=== PATIENT | female | born 1950 | race Caucasian/White ===

== ENCOUNTER 2020-05-19 09:22 | Outpatient (REF) | payer MEDICARE, SELFPAY ==
[2020-05-19 10:33] LABS: Estimated Average Glucose 226 mg/dL; Hemoglobin A1c % 9.5 %
[2020-05-19 10:57] LABS: Alanine Aminotransferase 71 U/L (0-31); Aspartate Amino Transferase 56 U/L (5-31); Glucose Fasting 108 mg/dL (60-99)
== END 2020-05-19 09:23 | disposition home or self-care (01) ==
LOC: HO.10HDL 09:22
PROVIDERS: Visit Provider Family Medicine
DX: R94.5 Abnormal results of liver function studies (principal); E11.9 Type 2 diabetes mellitus without complications
CPT/HCPCS: 82947; 83036; 84450; 84460

== ENCOUNTER 2020-07-14 11:33 | Outpatient (REF) | payer MEDICARE, SELFPAY ==
[2020-07-14 14:14] LABS: Alanine Aminotransferase 96 U/L (0-31); Anion Gap 18 (12-20); Blood Urea Nitrogen 9 mg/dL (9-16); Carbon Dioxide 23 mmol/L (22-29); Chloride 104 mmol/L (96-108); Estimated Glomerular Filt Rate > 60; Potassium 4.7 mmol/l (3.3-5.1); Sodium 140 mmol/L (135-145)
[2020-07-15 09:08] LABS: HBS Num1 0.68 mIU/mL (0-7.99); HBc Num1 0.23 S/CO (0.00-0.79); Hepatitis B Core Antibody Nonreactive (Nonreactive); ~HepC Num1 0.09 S/CO (0.00-0.79); ~Hepatitis B Surface Antibody NONREACTIVE (Nonreactive); ~Hepatitis C Antibody Nonreactive (Nonreactive)
== END 2020-07-14 11:34 | disposition home or self-care (01) ==
LOC: HO.10HDL 11:33
PROVIDERS: Visit Provider Family Medicine
DX: R03.0 Elevated blood-pressure reading, without diagnosis of hypertension (principal); R79.89 Other specified abnormal findings of blood chemistry; E03.9 Hypothyroidism, unspecified
CPT/HCPCS: 36415; 80051; 82565; 84460; 84520; 86704; 86706; 86803

== ENCOUNTER 2020-08-18 09:09 | Outpatient (REF) | payer MEDICARE, SELFPAY ==
--- NOTE | ~2020-08-18 | MM_ITS ---
EXAMINATION: MM DIAGNOSTIC DIGITAL BREAST TOMOSYNTHESIS, LEFT CLINICAL INFORMATION: Short interval six-month follow-up probable benign asymmetric density 3:00 left breast. Personal history contralateral right breast cancer status post lumpectomy and radiation 2002. COMPARISON: Mammography: 02/17/2020, 02/05/2020 (BI-RADS 0), 09/30/2018, 09/28/2017, 09/26/2016, 09/24/2015 TECHNIQUE: Digital breast tomosynthesis is performed in both the craniocaudal and mediolateral oblique views along with computer-aided detection (CAD). Synthesized 2D images are generated from the tomosynthesis. FINDINGS: There are scattered areas of fibroglandular density (ACR BI-RADS breast composition Category b). Fibroglandular density mid 3:00 position is similar to prior studies. There is no developing density. Left breast will be reassessed again at time of annual bilateral mammography, due in 6 months. Results are discussed with the patient at time of visit. MM/MM tomosynthesis diagnostic LT IMPRESSION: No significant changes from prior studies. No developing density in area of interest. ASSESSMENT: BI-RADS 3: Probably Benign RECOMMENDATION: Diagnostic mammography at time of annual bilateral exam, due in 6 months. This patient's information was entered into a reminder system with a target due date for their next mammogram.
== END 2020-08-18 09:10 | disposition home or self-care (01) ==
LOC: HO.MAMMO 09:09
PROVIDERS: PCP Family Medicine; Visit Provider Family Medicine
DX: R92.8 Other abnormal and inconclusive findings on diagnostic imaging of breast (principal)
CPT/HCPCS: 77061; 77065

== ENCOUNTER 2020-12-03 09:45 | Outpatient (REF) | payer MEDICARE, SELFPAY ==
[2020-12-03 10:41] LABS: Alanine Aminotransferase 52 U/L (0-31); Alkaline Phosphatase 104 U/L (39-117); Aspartate Amino Transferase 49 U/L (5-31); Bilirubin Direct 0.2 mg/dL (0.0-0.5); Bilirubin Total 0.4 mg/dL (0.0-1.0); Glucose Fasting 134 mg/dL (60-99); Total Protein 7.3 g/dL (6.5-8.0)
[2020-12-03 10:44] LABS: Estimated Average Glucose 189 mg/dL; Hemoglobin A1c % 8.2 %
[2020-12-03 10:48] LABS: Free T4 (Free Thyroxine) 1.11 ng/dL (0.71-1.85); Thyroid Stimulating Hormone 2.09 uIU/mL (0.32-4.0)
[2020-12-03 12:28] LABS: Creatinine Urine 76.41 mg/dL; Microalbum/Creatinine Ratio Ur 15.7 ug/mg cr
== END 2020-12-03 09:46 | disposition home or self-care (01) ==
LOC: HO.10HDL 09:45
PROVIDERS: Visit Provider Family Medicine
DX: E11.9 Type 2 diabetes mellitus without complications (principal); K76.0 Fatty (change of) liver, not elsewhere classified; E03.9 Hypothyroidism, unspecified
CPT/HCPCS: 36415; 80076; 82043; 82947; 83036; 84439; 84443

== ENCOUNTER 2021-02-21 12:26 | Outpatient (REF) | payer MEDICARE, SELFPAY ==
--- NOTE | ~2021-02-21 | MM_ITS ---
EXAMINATION: MM DIAGNOSTIC DIGITAL BREAST TOMOSYNTHESIS, BILATERAL CLINICAL INFORMATION: Due for yearly. Personal history right breast cancer status post lumpectomy and radiation, 2001. Also follow-up probable benign asymmetric density 3:00 left breast. COMPARISON: Mammography: 08/18/2020, 02/17/2020, 02/05/2020 (BI-RADS 0), 09/30/2018, 09/28/2017 TECHNIQUE: Digital breast tomosynthesis is performed in both the craniocaudal and mediolateral oblique views along with computer-aided detection (CAD). Synthesized 2D images are generated from the tomosynthesis. Additional left MLO and spot right CC views are obtained. FINDINGS: There are scattered areas of fibroglandular density (ACR BI-RADS breast composition Category b). Parenchymal pattern is similar to prior exams. There is no interval mass or developing density. No architectural abnormality. The asymmetric density left breast is less conspicuous when compared with the exam 02/05/2020. Neither breast shows abnormal calcifications. There are no significant changes. Results are discussed with the patient at time of visit. MM/MM tomosynthesis diagnostic BI IMPRESSION: 1. Left: Asymmetric density left conspicuous since 02/05/2020. No developing density. 2. Right: No mammographic evidence of malignancy. ASSESSMENT: BI-RADS 3: Probably Benign RECOMMENDATION: Diagnostic mammography at time of next annual exam, due in 12 months. This patient's information was entered into a reminder system with a target due date for their next mammogram.
== END 2021-02-21 12:27 | disposition home or self-care (01) ==
LOC: HO.MAMMO 12:26
PROVIDERS: PCP Family Medicine; Visit Provider Family Medicine
DX: R92.2 Inconclusive mammogram (principal)
CPT/HCPCS: 77062; 77066

== ENCOUNTER 2021-03-14 10:39 | Outpatient (REF) | payer MEDICARE, SELFPAY ==
[2021-03-14 10:55] VITALS: BP 210/100; PULSE 91; RESP 16; TEMP 37.1; O2SAT 98
[2021-03-14 11:20] VITALS: BMI 28.0
== END 2021-03-14 10:40 | disposition home or self-care (01) ==
LOC: HO.MS 10:39
PROVIDERS: PCP Family Medicine; Visit Provider Ophthalmology
PROC: (CPT 66821; principal; 2021-03-14 15:40)
DX: H26.492 Other secondary cataract, left eye (principal); H43.22 Crystalline deposits in vitreous body, left eye; Z96.1 Presence of intraocular lens; I10 Essential (primary) hypertension; E11.9 Type 2 diabetes mellitus without complications; Z79.4 Long term (current) use of insulin; Z79.899 Other long term (current) drug therapy
CPT/HCPCS: 66821

== ENCOUNTER 2021-03-25 | Outpatient (REF) | payer MEDICARE, SELFPAY ==
[2021-03-26 12:21] LABS: Influenza A PCR NEGATIVE (Negative); Influenza B PCR NEGATIVE (Negative); Resp Syncy Virus RNA Qual PCR NEGATIVE (Negative); SARS COV2 PCR INHOUSE NEGATIVE (Negative)
== END 2021-03-25 00:01 | disposition home or self-care (01) ==
LOC: HO.LNP
PROVIDERS: Visit Provider Internal Medicine
DX: Z20.822 Contact with and (suspected) exposure to COVID-19 (principal)
CPT/HCPCS: 0241U

== ENCOUNTER 2021-03-28 12:04 | Outpatient (REF) | payer MEDICARE, SELFPAY ==
[2021-03-28 12:37] VITALS: BMI 38.0
[2021-03-28 12:38] VITALS: BP 219/91; PULSE 77; RESP 16; TEMP 36.9; O2SAT 98
== END 2021-03-28 12:05 | disposition home or self-care (01) ==
LOC: HO.MS 12:04
PROVIDERS: PCP Family Medicine; Visit Provider Ophthalmology
PROC: (CPT 67840; principal; 2021-03-28 14:10)
DX: D23.121 Other benign neoplasm of skin of left upper eyelid, including canthus (principal); Z96.1 Presence of intraocular lens; I10 Essential (primary) hypertension; E11.9 Type 2 diabetes mellitus without complications; Z79.4 Long term (current) use of insulin; Z79.899 Other long term (current) drug therapy
CPT/HCPCS: 67840 ×3; 88304; 88305

== ENCOUNTER 2021-05-23 10:02 | Outpatient (REF) | payer MEDICARE, SELFPAY ==
[2021-05-23 14:19] LABS: Alanine Aminotransferase 47 U/L (0-31); Anion Gap 16 (12-20); Blood Urea Nitrogen 7 mg/dL (9-16); Carbon Dioxide 23 mmol/L (22-29); Chloride 103 mmol/L (96-108); Estimated Glomerular Filt Rate > 60; Glucose Fasting 139 mg/dL (60-99); Potassium 4.2 mmol/L (3.3-5.1); Sodium 138 mmol/L (135-145)
[2021-05-23 14:31] LABS: Estimated Average Glucose 194 mg/dL; Hemoglobin A1c % 8.4 %
[2021-05-23 14:40] LABS: Free T4 (Free Thyroxine) 1.09 ng/dL (0.71-1.85); Thyroid Stimulating Hormone 2.49 uIU/mL (0.32-4.0)
[2021-05-23 14:50] LABS: Creatinine Urine 213.34 mg/dL; Microalbum/Creatinine Ratio Ur 18.7 ug/mg cr
== END 2021-05-23 10:03 | disposition home or self-care (01) ==
LOC: HO.10HDL 10:02
PROVIDERS: Visit Provider Family Medicine
DX: E03.9 Hypothyroidism, unspecified (principal); E11.9 Type 2 diabetes mellitus without complications; I10 Essential (primary) hypertension
CPT/HCPCS: 36415; 80051; 82043; 82565; 82947; 83036; 84439; 84443; 84460; 84520

== ENCOUNTER 2021-07-15 17:21 | Outpatient (REF) | payer MEDICARE, SELFPAY ==
[2021-07-15 17:43] LABS: COVID-19 Test Negative (Negative)
== END 2021-07-15 17:22 | disposition home or self-care (01) ==
LOC: HO.LNP 17:21
PROVIDERS: Visit Provider Internal Medicine
DX: Z20.822 Contact with and (suspected) exposure to COVID-19 (principal)
CPT/HCPCS: 87635

== ENCOUNTER 2021-08-16 10:22 | Outpatient (REF) | payer MEDICARE, SELFPAY ==
[2021-08-16 14:06] LABS: Estimated Average Glucose 212 mg/dL; Glucose Fasting 131 mg/dL (60-99)
[2021-08-16 14:25] LABS: Creatinine Urine 154.05 mg/dL; Microalbum/Creatinine Ratio Ur 15.5 ug/mg cr
== END 2021-08-16 10:23 | disposition home or self-care (01) ==
LOC: HO.10HDL 10:22
PROVIDERS: Visit Provider Family Medicine
DX: E11.9 Type 2 diabetes mellitus without complications (principal)
CPT/HCPCS: 36415; 82043; 82947; 83036

== ENCOUNTER 2021-12-14 10:49 | Outpatient (REF) | payer MEDICARE, SELFPAY ==
--- NOTE | ~2021-12-14 | US_ITS ---
EXAMINATION: US EXTRACRANIAL CAROTID DUPLEX, BILATERAL CLINICAL INFORMATION: Carotid bruit COMPARISON: None TECHNIQUE: Real-time ultrasound and Doppler techniques (integrating B-mode 2-D vascular images, Doppler spectral analysis and color-flow Doppler imaging) were utilized to interrogate the extracranial carotid arteries, the vertebral arteries and proximal subclavian arteries bilaterally. The degree of stenosis is determined by criteria similar to NASCET. FINDINGS: Right Side: 1. There is mild atherosclerotic plaque seen in the bifurcation/proximal ICA region. 2. The common carotid artery PSV proximally is 142 cm/s and distally 90 cm/s. 3. The proximal internal carotid artery velocities are 73 cm/s systolic and 26 cm/s diastolic. 4. The proximal external carotid artery PSV is 170 cm/s. 5. The vertebral artery shows antegrade flow. 6. The subclavian artery waveforms are normal. Left Side: 1. There is mild atherosclerotic plaque seen in the bifurcation/proximal ICA region. 2. The common carotid artery PSV proximally is 173 cm/s and distally 104 cm/s. 3. The proximal internal carotid artery velocities are 95 cm/s systolic and 29 cm/s diastolic. 4. The proximal external carotid artery PSV is 192 cm/s. 5. The vertebral artery shows antegrade flow. 6. The subclavian artery waveforms are normal. US/US carotid duplex BI IMPRESSION: 1. RIGHT: Minimal, non-hemodynamically significant stenosis of the proximal right internal carotid artery corresponding to a 0-49% stenosis by velocity criteria. 2. LEFT: Minimal, non-hemodynamically significant stenosis of the proximal left internal carotid artery corresponding to a 0-49% stenosis by velocity criteria.
== END 2021-12-14 10:50 | disposition home or self-care (01) ==
LOC: HO.US 10:49
PROVIDERS: Visit Provider Family Medicine
DX: R09.89 Other specified symptoms and signs involving the circulatory and respiratory systems (principal); I10 Essential (primary) hypertension; E11.9 Type 2 diabetes mellitus without complications
CPT/HCPCS: 93880

== ENCOUNTER 2022-01-30 11:05 | Outpatient (REF) | payer MEDICARE, SELFPAY ==
[2022-01-30 13:57] LABS: Estimated Average Glucose 189 mg/dL; Hemoglobin A1c % 8.2 %
[2022-01-30 14:07] LABS: Alanine Aminotransferase 59 U/L (0-31); Anion Gap 15 (12-20); Aspartate Amino Transferase 55 U/L (5-31); Blood Urea Nitrogen 6 mg/dL (9-16); Carbon Dioxide 24 mmol/L (22-29); Chloride 104 mmol/L (96-108); Cholesterol 223 mg/dL; Estimated Glomerular Filt Rate > 60; Glucose Fasting 120 mg/dL (60-99); HDL Cholesterol 56 mg/dL; LDL Cholesterol Calculated 127 mg/dl; Potassium 4.4 mmol/L (3.3-5.1); Sodium 139 mmol/L (135-145); Triglycerides 201 mg/dL
== END 2022-01-30 11:06 | disposition home or self-care (01) ==
LOC: HO.10HDL 11:05
PROVIDERS: Family Medicine; Visit Provider Student in an Organized Health Care Education/Training Program
DX: I10 Essential (primary) hypertension (principal); E03.9 Hypothyroidism, unspecified; E78.00 Pure hypercholesterolemia, unspecified; E11.9 Type 2 diabetes mellitus without complications; Z79.899 Other long term (current) drug therapy
CPT/HCPCS: 36415; 80051; 80061; 82550; 82565; 82947; 83036; 84450; 84460; 84520

== ENCOUNTER 2022-02-23 12:46 | Outpatient (REF) | payer MEDICARE, SELFPAY ==
--- NOTE | ~2022-02-23 | MM_ITS ---
EXAMINATION: MM DIAGNOSTIC DIGITAL BREAST TOMOSYNTHESIS, BILATERAL CLINICAL INFORMATION: Due for yearly. Personal history right breast cancer status post lumpectomy and radiation, 2001. Also follow-up probable benign asymmetric density 3:00 left breast. COMPARISON: Mammography: 02/21/2021, 08/18/2020, 02/17/2020, 02/05/2020 (BI-RADS 0), 09/30/2018, 09/28/2017; left breast ultrasound 02/17/2020 TECHNIQUE: Digital breast tomosynthesis is performed in both the craniocaudal and mediolateral oblique views along with computer-aided detection (CAD). Synthesized 2D images are generated from the tomosynthesis. Additional exaggerated right CC view is provided. FINDINGS: There are scattered areas of fibroglandular density (ACR BI-RADS breast composition Category b). Right breast post therapy changes are stable. Neither breast shows developing density or interval mass or architectural abnormality. Minor left retroareolar duct ectasia is stable. Again, there are scattered benign round and rim and dermal calcifications again seen. The axilla and skin contours are unremarkable. No significant changes from prior studies. Results are discussed with the patient at time of visit. MM/MM tomosynthesis diagnostic BI IMPRESSION: No mammographic evidence of malignancy. ASSESSMENT: BI-RADS 2: Benign RECOMMENDATION: Routine annual mammography screening. This patient's information was entered into a reminder system with a target due date for their next mammogram.
== END 2022-02-23 12:47 | disposition home or self-care (01) ==
LOC: HO.MAMMO 12:46
PROVIDERS: PCP Family Medicine; Visit Provider Family Medicine
DX: R92.2 Inconclusive mammogram (principal); Z85.3 Personal history of malignant neoplasm of breast; Z92.3 Personal history of irradiation
CPT/HCPCS: 77062; 77066

== ENCOUNTER 2022-03-09 08:05 | Outpatient (REF) | payer MEDICARE, SELFPAY ==
--- NOTE | ~2022-03-09 | XR_ITS ---
EXAMINATION: XR knee standing BI, XR knee RT 2V CLINICAL INFORMATION: Reason for Exam M25.569 - Pain in unspecified knee COMPARISON: Knee radiographs 12/19/2018 TECHNIQUE: Two views of the right knee and one views of the bilateral knees standing FINDINGS: * No acute fracture or dislocation. * Moderate to advanced degenerative changes of the right knee worst involving the patellofemoral joint where there is loss of joint space and large osteophytes similar to prior. No right suprapatellar joint effusion. Again seen is a possible 5 mm loose body within the right tibiofemoral joint. Atherosclerotic vascular calcification is noted posterior to the right knee. * Left knee is remarkable for moderate osteoarthritis with mild narrowing of the medial compartment joint space similar to prior. XR/XR knee RT 2V Impression: Moderate to advanced osteoarthritis of the right knee worst involving the patellofemoral compartment similar to prior with a possible 5 mm loose body. Moderate osteoarthritis of the left knee similar to prior.
--- NOTE | ~2022-03-09 | XR_ITS ---
EXAMINATION: XR knee standing BI, XR knee RT 2V CLINICAL INFORMATION: Reason for Exam M25.569 - Pain in unspecified knee COMPARISON: Knee radiographs 12/19/2018 TECHNIQUE: Two views of the right knee and one views of the bilateral knees standing FINDINGS: * No acute fracture or dislocation. * Moderate to advanced degenerative changes of the right knee worst involving the patellofemoral joint where there is loss of joint space and large osteophytes similar to prior. No right suprapatellar joint effusion. Again seen is a possible 5 mm loose body within the right tibiofemoral joint. Atherosclerotic vascular calcification is noted posterior to the right knee. * Left knee is remarkable for moderate osteoarthritis with mild narrowing of the medial compartment joint space similar to prior. XR/XR knee standing BI Impression: Moderate to advanced osteoarthritis of the right knee worst involving the patellofemoral compartment similar to prior with a possible 5 mm loose body. Moderate osteoarthritis of the left knee similar to prior.
== END 2022-03-09 08:06 | disposition home or self-care (01) ==
LOC: HO.HOSX 08:05
PROVIDERS: Visit Provider Orthopaedic Surgery
DX: M17.11 Unilateral primary osteoarthritis, right knee (principal)
CPT/HCPCS: 20610; 73560; 73565; 99212; J1100

== ENCOUNTER 2022-04-21 10:55 | Outpatient (REF) | payer MEDICARE, SELFPAY ==
[2022-04-21 14:58] LABS: Free T4 (Free Thyroxine) 1.12 ng/dL (0.71-1.85)
== END 2022-04-21 10:56 | disposition home or self-care (01) ==
LOC: HO.10HDL 10:55
PROVIDERS: Visit Provider Family Medicine
DX: E03.9 Hypothyroidism, unspecified (principal)
CPT/HCPCS: 36415; 84439

== ENCOUNTER 2022-09-18 08:38 | Outpatient (REF) | payer MEDICARE, SELFPAY ==
[2022-09-18 11:11] LABS: Alanine Aminotransferase 31 U/L (0-31); Anion Gap 13 (12-20); Aspartate Amino Transferase 30 U/L (5-31); Blood Urea Nitrogen 12 mg/dL (9-16); Carbon Dioxide 27 mmol/L (22-29); Chloride 107 mmol/L (96-108); Cholesterol 207 mg/dL; Estimated Glomerular Filt Rate > 60; Glucose Fasting 116 mg/dL (60-99); HDL Cholesterol 59 mg/dL; LDL Cholesterol Calculated 124 mg/dl; Potassium 4.7 mmol/L (3.3-5.1); Sodium 142 mmol/L (135-145); Triglycerides 122 mg/dL
[2022-09-18 11:12] LABS: Estimated Average Glucose 209 mg/dL; Hemoglobin A1c % 8.9 %
[2022-09-18 12:25] LABS: Creatinine Urine 69.65 mg/dL; Microalbum/Creatinine Ratio Ur 21.5 ug/mg cr
== END 2022-09-18 08:39 | disposition home or self-care (01) ==
LOC: HO.10HDL 08:38
PROVIDERS: Visit Provider Family Medicine
DX: I10 Essential (primary) hypertension (principal); E11.9 Type 2 diabetes mellitus without complications; E78.00 Pure hypercholesterolemia, unspecified; Z79.899 Other long term (current) drug therapy
CPT/HCPCS: 36415; 80051; 80061; 82043; 82550; 82565; 82947; 83036; 84450; 84460; 84520

== ENCOUNTER 2022-12-01 05:58 | Inpatient (IN) | payer MEDICARE, SELFPAY ==
[2022-12-01] VITALS (12 sets, daily range): BP systolic 106–179; BP diastolic 39–82; PULSE 63–97; RESP 12–20; TEMP 36.5–37.7; O2SAT 97–100; BMI 37.9; BMI 39.1
--- NOTE | 2022-12-01 | ECG_ITS ---
Test Reason : NAUSEA Blood Pressure : / mmHG Vent. Rate : 097 BPM Atrial Rate : 097 BPM P-R Int : 160 ms QRS Dur : 066 ms QT Int : 372 ms P-R-T Axes : 035 038 053 degrees QTc Int : 472 ms Normal sinus rhythm Normal ECG When compared with ECG of 14-OCT-2012 10:10, Nonspecific T wave abnormality no longer evident in Lateral leads QT has lengthened Referred By: Generic ED Physician Electronically Signed By:Donnell Parada
--- NOTE | ~2022-12-01 | CT_ITS ---
EXAMINATION: CT ABDOMEN AND PELVIS WITH CONTRAST CLINICAL INFORMATION: Right lower quadrant pain COMPARISON: Previous ultrasound, CT and MRI of the abdomen March 2009 TECHNIQUE: Multidetector volumetric images were obtained from the superior aspect of the liver through the pubic symphysis following administration 85 mL of Omnipaque 350 intravenous contrast. Sagittal and coronal reformatted images were obtained on the technologist's workstation. Oral contrast: Yes This CT examination was performed using dose optimization techniques as appropriate, variously including the following: *Automated exposure control *Adjustment of mA and/or kV according to patient size (this includes techniques or standardized protocols for targeted exams where dose is matched to indication/reason for exam; i.e. extremities or head) *Use of iterative reconstruction technique DLP: 842 mGy-cm FINDINGS: LUNG BASES: There is scarring or subsegmental atelectasis at the left lung base. There is a 5 mm left lower lobe nodule axial image 8 series 6. This is not included in the fluid in the [id number] on prior exam and cannot be compared. LIVER, GALLBLADDER, AND BILIARY TREE: Mild cirrhotic changes of the liver. No focal liver lesion. Patent hepatic and portal veins. The gallbladder has been removed. No biliary duct dilatation. PANCREAS: Unremarkable. SPLEEN: Wedge-shaped area of decreased attenuation in the spleen probably representing a splenic infarct. There is a small amount of fluid adjacent to the spleen. Splenic artery and splenic vein are patent. ADRENAL GLANDS: Unremarkable. KIDNEYS AND URETERS: Wedge-shaped areas of decreased attenuation in both kidneys, left greater than right. Differential would include infarcts and infection. Small nonobstructing left renal stone.. Small cyst in the lower pole the left kidney. No imaging follow-up recommended. The renal arteries and renal veins are patent. BLADDER: Unremarkable. GASTROINTESTINAL TRACT: Diverticulosis of the colon. No evidence of diverticulitis. Question areas of mild wall thickening of the small bowel. This is greatest in the left lower quadrant. The small and large bowel are otherwise unremarkable. The appendix is unremarkable. ABDOMINAL WALL: No significant hernia is appreciated. LYMPH NODES: Normal. VASCULAR: There is atherosclerotic disease. No aneurysm. Major vessels are patent. No thrombus seen.. PELVIC VISCERA: There is a small amount of ascites in the pelvis. Uterus and adnexa are unremarkable. OSSEOUS STRUCTURES: Degenerative changes of the spine and hip joints CT/CT abdomen pelvis w IV con IMPRESSION: Wedge-shaped low-attenuation areas in the spleen and bilateral kidneys. Appearance is suggestive of infarcts. Differential would include infection. Clinical correlation recommended. Small left renal stone. Cirrhotic-appearing liver. Small amount of ascites. Question mild wall thickening of the small bowel. Diverticulosis. 5 mm left lower lobe nodule. Chest CT follow-up recommended. Fleischner guidelines were followed.
--- NOTE | ~2022-12-01 | CT_ITS ---
EXAMINATION: Head and cervical spine CT without IV contrast CLINICAL INFORMATION: Syncope. Fall. COMPARISON: Previous head CT most recent June 2009 and cervical spine x-ray June 2009 TECHNIQUE: Axial images through the head and cervical spine without IV contrast. Sagittal and coronal reconstructions on the technologist workstation were performed. This CT examination was performed using dose optimization techniques as appropriate, variously including the following: *Automated exposure control *Adjustment of mA and/or kV according to patient size (this includes techniques or standardized protocols for targeted exams where dose is matched to indication/reason for exam; i.e. extremities or head) *Use of iterative reconstruction technique DLP 150 5 mg/cm FINDINGS: Head CT: There is no evidence for an extra-axial collection. There is no evidence for intra or extra-axial hemorrhage. The ventricles and extra-axial CSF spaces are appropriate. There is low-attenuation seen in the periventricular white matter of the left posterior parietal lobe suggestive of a periventricular and subcortical white matter infarct. This is increased in the interval from 2009 however is probably old. No mass, mass effect or acute infarct is seen. review at bone windows is normal. No skull fracture. Stable partially calcified scalp mass measuring 1 cm at the vertex. Cervical spine CT: Bone alignment is normal. No fracture or dislocation. There is degenerative spondylosis and degenerative disc disease at C3-C5-C6 and C6-C7. There is bilateral multilevel facet arthritis, left greater than right. There are degenerative changes at the C1 dens articulation. Prevertebral soft tissues are normal. Visualized lung apices are clear. The visualized aortic arch may be slightly dilated measuring 3.[address]/CT cervical spine wo IV con IMPRESSION: Head CT: No acute findings. Probable old left posterior parietal periventricular/subcortical white matter infarct. Cervical spine CT: Degenerative changes. No fracture or dislocation.
--- NOTE | ~2022-12-01 | XR_ITS ---
EXAMINATION: XR CHEST CLINICAL INFORMATION: Syncope COMPARISON: Previous chest x-ray from 2012 TECHNIQUE: Frontal view of the chest was obtained. FINDINGS: No significant abnormality is noted involving the heart, lungs, mediastinum, bony thorax or soft tissues. Degenerative changes of the spine. XR/XR chest 1V IMPRESSION: Unremarkable examination.
--- NOTE | 2022-12-01 06:34 | ED_ITS ---
HPI - General Adult General Chief complaint: General Medical Stated complaint: hypoglycemia N/V/D Weakness Time Seen by Provider: 12/01/22 06:34 Source: patient, EMS and RN notes reviewed Mode of arrival: EMS Limitations: no limitations History of Present Illness HPI narrative: Patient is a 72-year-old female with history T2 dm, HTN, hypothyroid, cholecystectomy, CVA at age 37 presenting to the emergency department via EMS after episode of nausea, vomiting, and diarrhea at home. Patient reports she was awake from 2am-4am and around 4:20 felt nauseated. She went to get off the bed to go to the bathroom and felt weak, believes she may have passed out. She then had diaphoresis, vomiting and diarrhea where she was laying on the floor. She remembers her administering OJ and brown sugar. She reports approximately 4 prior similar episodes in the past 5-6 years. She reports 1 other evaluation in an emergency department following 1 of these episodes. She currently denies any abdominal pain, does report ongoing nausea, states she feels better lying on her left side. Reports she felt normal yesterday. Denies recent fevers. Denies chest pain or shortness of breath. Denies dizziness or lightheadedness yesterday. Reports that emesis was food, no blood, no bile. Denies hematochezia or melena. , who is a physician, reports patient slid from their bed onto carpeted floor and had non-focal seizure like movements. He states her BP was low for EMS with SBP around 80. MD complaint: Syncope, N/V/D Onset (ago): hour(s) Location: abdomen Radiation: non-radiation Associated symptoms: diaphoresis and nausea/vomiting Treatments prior to arrival: other (zofran from EMS) Related Data Home Medications Medication Instructions Recorded Confirmed aspirin 81 mg tablet,delayed 81 mg PO DAILY 03/09/22 release (Adult Low Dose Aspirin) insulin syringe-needle U-100 1 mL #10 ea 03/09/22 31 gauge x 5/16 (BD Insulin Syringe Ultra-Fine) levothyroxine 75 mcg tablet 75 mcg PO DAILY 03/09/22 (Synthroid) lisinopril 20 mg tablet 20 mg PO DAILY 03/09/22 metformin 1,000 mg tablet 1,000 mg PO BID 03/09/22 pravastatin 10 mg tablet 10 mg PO BEDTIME 03/09/22 Allergies Allergy/AdvReac Type Severity Reaction Status Date / Time shellfish derived Allergy Severe Anaphylaxis, Verified 12/01/22 07:05 Hives, Shortness of Breath SILK TAPE Allergy Mild RASH Uncoded 03/11/20 15:16 Review of Systems Review of Systems: As per HPI. Yes all other systems are reviewed and are negative Constitutional: Constitutional: Reports as per HPI [facility] Past Medical History Medical History (Updated 12/01/22 @ 15:40 by Alma Andrea NP) Diabetes Hypertension Hypothyroidism Surgical History (Updated 03/09/22 @ 08:17 by Ashley Cain CMA) H/O right knee surgery Social History Social History Advance Directives: Yes Advance Directives Information Provided: Yes Advance Directives on File: No Physical Exam ED Vital Signs: Vital Signs - 24 hr 12/01/22 06:05 12/01/22 06:27 12/01/22 07:50 Temperature Pulse Rate 97 92 76 Respiratory Rate 19 19 Blood Pressure 108/65 106/73 129/43 L Pulse Oximetry 100 99 Oxygen Delivery Method Room Air Room Air Room Air 12/01/22 08:06 12/01/22 08:20 12/01/22 11:54 Temperature 98.8 F Pulse Rate 75 74 78 Respiratory Rate 16 Blood Pressure 112/53 L 134/55 L 145/53 H Pulse Oximetry 98 Oxygen Delivery Method Room Air Room Air Room Air 12/01/22 13:34 12/01/22 14:04 12/01/22 14:19 Temperature 97.7 F Pulse Rate 80 65 Respiratory Rate 16 16 18 Blood Pressure 135/47 L 149/53 H 158/60 H Pulse Oximetry 97 98 100 Oxygen Delivery Method Room Air Room Air Room Air BMI result Body Mass Index 37.9 Vital signs have been reviewed and appear to be correct. Blood pressure normal. Heart rate normal. Respiratory rate normal. Temperature normal. Oxygen saturation normal. Const General: cooperative and no acute distress Orientation/consciousness: oriented to person, oriented to place, oriented to time and patient oriented x3 Limitations: no limitations HENMT Head: Yes normocephalic and Yes atraumatic Ears: external ears normal General nose exam: Normal external nose present Face and sinus: Yes face symmetric Mouth: oropharynx normal and moist mucous membranes Throat: Yes uvula midline Eyes Pupils: Equal, round and reactive pupils present Neck Neck: Yes normal visual inspection and Yes supple Resp Effort & Inspection: normal respiratory effort and able to speak in complete sentences Auscultation: clear to auscultation bilaterally Cardio Rate: regular rate Rhythm: regular rhythm Heart sounds: S1 normal heart sound present and S2 normal heart sound present GI Palpation (GI): Soft to palpation and nontender Auscultation: normoactive bowel sounds General: Yes no CVA tenderness Back/Spine/Pelvis Back: no CVA tenderness Skin General skin exam: elasticity normal and turgor normal Neuro General: oriented to person, oriented to place, oriented to time, patient oriented x3, moves all extremities, no focal motor deficits and CN's II-XI intact bilaterally Cranial nerves: Yes Equal, round and reactive pupils present Cognition (Neuro): normal cognition Motor exam (neuro): Normal motor muscle tone present throughout Sensory Exam: Normal double simultaneous stimulation for sensation Extrem General: Yes full ROM, Yes no pedal edema and Yes no calf tenderness Psych Mental Status: mental status grossly normal Affect: normal affect Thought process: Normal thought process present Course Course Course Narrative: 07:45 Critical lactic of 4.4 received from lab, increases suspicion for seizure as cause of symptoms, or possibly from metformin. 09:51 FINDINGS: Head CT: There is no evidence for an extra-axial collection. There is no evidence for intra or extra-axial hemorrhage. The ventricles and extra-axial CSF spaces are appropriate. There is low-attenuation seen in the periventricular white matter of the left posterior parietal lobe suggestive of a periventricular and subcortical white matter infarct. This is increased in the interval from 2009 however is probably old. No mass, mass effect or acute infarct is seen. review at bone windows is normal. No skull fracture. Stable partially calcified scalp mass measuring 1 cm at the vertex. Cervical spine CT: Bone alignment is normal. No fracture or dislocation. There is degenerative spondylosis and degenerative disc disease at C3-C5-C6 and C6-C7. There is bilateral multilevel facet arthritis, left greater than right. There are degenerative changes at the C1 dens articulation. Prevertebral soft tissues are normal. Visualized lung apices are clear. The visualized aortic arch may be slightly dilated measuring 3.[address]/CT head/brain wo IV con IMPRESSION: Head CT: No acute findings. Probable old left posterior parietal periventricular/subcortical white matter infarct. ?Cervical spine CT: Degenerative changes. No fracture or dislocation. 10:17 Repeat lactic 4.2, sepsis now suspected, blood cultures, additional IV fluids, CXR, and abx ordered. 11:42 FINDINGS: No significant abnormality is noted involving the heart, lungs, mediastinum, bony thorax or soft tissues. Degenerative changes of the spine. XR/XR chest 1V IMPRESSION: Unremarkable examination. Patient now complaining of right lower quadrant abdominal pain. Ordered CT abdomen/pelvis. 12:37 Third lactic 4.7, IV fluids ordered, awaiting results of CT abdomen 14:35 Sepsis focused exam performed. FINDINGS: LUNG BASES: There is scarring or subsegmental atelectasis at the left lung base. There is a 5 mm left lower lobe nodule axial image 8 series 6. This is not included in the fluid in the [id number] on prior exam and cannot be compared. LIVER, GALLBLADDER, AND BILIARY TREE: Mild cirrhotic changes of the liver. No focal liver lesion. Patent hepatic and portal veins. The gallbladder has been removed. No biliary duct dilatation. PANCREAS: Unremarkable.? SPLEEN: Wedge-shaped area of decreased attenuation in the spleen probably representing a splenic infarct. There is a small amount of fluid adjacent to the spleen. Splenic artery and splenic vein are patent. ADRENAL GLANDS: Unremarkable.? KIDNEYS AND URETERS: Wedge-shaped areas of decreased attenuation in both kidneys, left greater than right. Differential would include infarcts and infection. Small nonobstructing left renal stone.. Small cyst in the lower pole the left kidney. No imaging follow-up recommended. The renal arteries and renal veins are patent. BLADDER: Unremarkable.? GASTROINTESTINAL TRACT: Diverticulosis of the colon. No evidence of diverticulitis. Question areas of mild wall thickening of the small bowel. This is greatest in the left lower quadrant. The small and large bowel are otherwise unremarkable. The appendix is unremarkable.? ABDOMINAL WALL: No significant hernia is appreciated.? LYMPH NODES: Normal. VASCULAR: There is atherosclerotic disease. No aneurysm. Major vessels are patent. No thrombus seen.. PELVIC VISCERA: There is a small amount of ascites in the pelvis. Uterus and adnexa are unremarkable.? OSSEOUS STRUCTURES: Degenerative changes of the spine and hip joints CT/CT abdomen pelvis w IV con IMPRESSION: Wedge-shaped low-attenuation areas in the spleen and bilateral kidneys. Appearance is suggestive of infarcts. Differential would include infection. Clinical correlation recommended. Small left renal stone. Cirrhotic-appearing liver. Small amount of ascites. Question mild wall thickening of the small bowel. Diverticulosis. 5 mm left lower lobe nodule. Chest CT follow-up recommended. ? Fleischner guidelines were followed. Medications Administered Discontinued Medications Generic Name Dose Route Start Last Admin Trade Name Freq PRN Reason Stop Dose Admin Diphenhydramine HCl 25 mg 12/01/22 11:51 12/01/22 12:52 Diphenhydramine Hcl 50 Mg/Ml Vial IVPUSH 12/01/22 11:52 25 mg ONCE ONE Administration Sodium Chloride 1,000 mls @ 999 mls/hr 12/01/22 06:45 12/01/22 09:39 Ns IV 12/01/22 07:45 Infused .Q1H1M [place] Infusion Sodium Chloride 1,000 mls @ 999 mls/hr 12/01/22 10:15 12/01/22 11:20 Ns IV 12/01/22 11:15 Infused .Q1H1M [place] Infusion Piperacillin Sod/Tazobactam 50 mls @ 100 mls/hr 12/01/22 10:17 12/01/22 11:20 Sod 3.375 gm/ Sodium Chloride IV 12/01/22 10:46 Infused ONCE ONE Infusion Sodium Chloride 1,000 mls @ 999 mls/hr 12/01/22 12:00 12/01/22 13:40 Ns IV 12/01/22 13:00 Infused .Q1H1M [place] Infusion Iohexol 85 ml 12/01/22 13:28 12/01/22 13:28 Iohexol 350 Mg/Ml 100 Ml Infus..Btl IV 12/01/22 13:29 85 ml ONCE ONE Administration Ondansetron HCl 4 mg 12/01/22 06:44 12/01/22 07:08 Ondansetron Hcl 4 Mg/2 Ml Vial IVPUSH 12/01/22 06:45 4 mg ONCE ONE Administration Medical Decision Making Medical Decision Making [facility] Narrative: Patient is a 72-year-old female with history T2 dm, HTN, hypothyroid, chol ecystectomy, CVA at age 37 presenting to the emergency department via EMS after episode of nausea, vomiting, and diarrhea at home. On exam patient is awake, A+Ox3, VS WNL, normal neurological exam without focal deficits, abdomen soft and nontender, no CVA tenderness. Concern for causes of syncope versus seizure including ACS, ICH, hypoglycemia, anemia, cardiac arrhythmia, electrolyte abnormalities, dehydration, vasovagal, malignancy/mass, viral gastroenteritis. Low suspicion for sepsis. Unlikely AAA rupture, aortic dissection, PE. Plan: EKG, labs including troponin, TSH, lactic, UA, CT head and neck, orthostatic VS, IV fluids, antiemetic Differential Diagnosis Differential Diagnoses: The differential diagnosis associated with the presentation includes As above. Admission/Observation Consideration of admission/observation: Escalation of care including admission/observation considered Lab Data 12/01/22 06:38 12/01/22 06:38 Labs: Lab Results 12/01/22 12/01/22 12/01/22 Range/Units 06:08 06:38 06:38 WBC 18.2 H (4.8-10.8) X10*3/uL RBC 5.73 H (4.20-5.50) X10*6/uL Hgb 16.1 H (12.0-16.0) g/dl Hct 49.7 H (37.0-47.0) % MCV 86.7 (80.0-98.0) fL MCH 28.1 (27.0-33.0) pg MCHC 32.4 (31.0-35.0) g/dl RDW 13.5 (11.0-16.0) % Plt Count TNP MPV Not Reportable Immature Gran % (Auto) 0.4 (0.0-0.4) % Neut % (Auto) 77.1 H (45-73) % Lymph % (Auto) 15.5 L (20-40) % [place] % (Auto) 6.0 (2-11) % Eos % (Auto) 0.4 (0-4) % Baso % (Auto) 0.6 (0-2) % Lymph # (Auto) 2.8 (1.2-4.9) X10*3/uL [place] # (Auto) 1.1 (0.1-1.2) X10*3/uL Eos # (Auto) 0.1 (0.0-0.4) X10*3/uL Baso # (Auto) 0.1 (0.0-0.2) X10*3/uL Abs Immat Gran (auto) 0.07 H (0.00-0.03) X10*3/uL Absolute Neuts (auto) 14.0 H (2.0-8.3) x10*3/uL Absolute Nucleated RBC 0.000 (0.0-0.012) X10*3/uL Nucleated RBC % (auto) 0.0 (0.0-0.2) /100WBC Smear Tech's Comments VERIFIED VBG pH (7.32-7.43) VBG pCO2 mmHg VBG pO2 mmHg VBG HCO3 (22-26) mmol/L VBG O2 Saturation % VBG Base Excess mmol/L Sodium 138 (135-145) mmol/L Potassium 4.0 (3.3-5.1) mmol/L Chloride 107 (96-108) mmol/L Carbon Dioxide 17 L (22-29) mmol/L Anion Gap 18 (12-20) BUN 13 (9-16) mg/dL Creatinine 0.88 (0.5-1.4) mg/dL Estim Creat Clear Calc 73.4 Estimated GFR > 60 POC Glucose 276 H (60-115) mg/dL Random Glucose 285 H (60-115) mg/dL Lactic Acid (0.5-2.0) mmol/L Lactic Acid F/U @ 2Hr (0.5-2.0) mmol/L Calcium 9.1 (8.4-10.2) mg/dL Magnesium (1.6-2.6) mg/dL Total Bilirubin (0.0-1.0) mg/dL Direct Bilirubin (0.0-0.5) mg/dL AST (5-31) U/L ALT (0-31) U/L Alkaline Phosphatase (39-117) U/L Troponin I High Sens (<3.5-17.0) ng/L Total Protein (6.5-8.0) g/dL Albumin (3.5-5.0) g/dL Lipase (8-78) U/L TSH (0.32-4.0) uIU/mL Free T4 (0.71-1.85) ng/dL Urine Color Urine Appearance Urine pH (5.0-9.0) Ur Specific [place] (1.005-1.025) Urine Protein (Neg-Trace) mg/dL Urine Glucose (UA) (Negative) mg/dL Urine Ketones (Negative) mg/dL Urine Blood (Negative) Urine Nitrite (Negative) Ur Leukocyte Esterase (Negative) Urine RBC (0-2) /HPF Urine WBC (0-5) /HPF Ur Squamous Epith Cells (0-2) /HPF Urine Bacteria (None Seen) Hyaline Casts (0-2) /LPF Urine Yeast 12/01/22 12/01/22 12/01/22 Range/Units 07:04 07:04 07:28 WBC (4.8-10.8) X10*3/uL RBC (4.20-5.50) X10*6/uL Hgb (12.0-16.0) g/dl Hct (37.0-47.0) % MCV (80.0-98.0) fL MCH (27.0-33.0) pg MCHC (31.0-35.0) g/dl RDW (11.0-16.0) % Plt Count MPV Immature Gran % (Auto) (0.0-0.4) % Neut % (Auto) (45-73) % Lymph % (Auto) (20-40) % [place] % (Auto) (2-11) % Eos % (Auto) (0-4) % Baso % (Auto) (0-2) % Lymph # (Auto) (1.2-4.9) X10*3/uL [place] # (Auto) (0.1-1.2) X10*3/uL Eos # (Auto) (0.0-0.4) X10*3/uL Baso # (Auto) (0.0-0.2) X10*3/uL Abs Immat Gran (auto) (0.00-0.03) X10*3/uL Absolute Neuts (auto) (2.0-8.3) x10*3/uL Absolute Nucleated RBC (0.0-0.012) X10*3/uL Nucleated RBC % (auto) (0.0-0.2) /100WBC Smear Tech's Comments VBG pH (7.32-7.43) VBG pCO2 mmHg VBG pO2 mmHg VBG HCO3 (22-26) mmol/L VBG O2 Saturation % VBG Base Excess mmol/L Sodium (135-145) mmol/L Potassium (3.3-5.1) mmol/L Chloride (96-108) mmol/L Carbon Dioxide (22-29) mmol/L Anion Gap (12-20) BUN (9-16) mg/dL Creatinine (0.5-1.4) mg/dL Estim Creat Clear Calc Estimated GFR POC Glucose (60-115) mg/dL Random Glucose (60-115) mg/dL Lactic Acid 4.4 H* (0.5-2.0) mmol/L Lactic Acid F/U @ 2Hr (0.5-2.0) mmol/L Calcium (8.4-10.2) mg/dL Magnesium 2.0 (1.6-2.6) mg/dL Total Bilirubin 0.3 (0.0-1.0) mg/dL Direct Bilirubin 0.1 (0.0-0.5) mg/dL AST 47 H (5-31) U/L ALT 52 H (0-31) U/L Alkaline Phosphatase 110 (39-117) U/L Troponin I High Sens 19.8 H (<3.5-17.0) ng/L Total Protein 6.8 (6.5-8.0) g/dL Albumin 3.7 (3.5-5.0) g/dL Lipase 36 (8-78) U/L TSH 4.96 H (0.32-4.0) uIU/mL Free T4 1.11 (0.71-1.85) ng/dL Urine Color Urine Appearance Urine pH (5.0-9.0) Ur Specific [place] (1.005-1.025) Urine Protein (Neg-Trace) mg/dL Urine Glucose (UA) (Negative) mg/dL Urine Ketones (Negative) mg/dL Urine Blood (Negative) Urine Nitrite (Negative) Ur Leukocyte Esterase (Negative) Urine RBC (0-2) /HPF Urine WBC (0-5) /HPF Ur Squamous Epith Cells (0-2) /HPF Urine Bacteria (None Seen) Hyaline Casts (0-2) /LPF Urine Yeast 12/01/22 12/01/22 12/01/22 Range/Units 08:36 09:30 09:30 WBC (4.8-10.8) X10*3/uL RBC (4.20-5.50) X10*6/uL Hgb (12.0-16.0) g/dl Hct (37.0-47.0) % MCV (80.0-98.0) fL MCH (27.0-33.0) pg MCHC (31.0-35.0) g/dl RDW (11.0-16.0) % Plt Count MPV Immature Gran % (Auto) (0.0-0.4) % Neut % (Auto) (45-73) % Lymph % (Auto) (20-40) % [place] % (Auto) (2-11) % Eos % (Auto) (0-4) % Baso % (Auto) (0-2) % Lymph # (Auto) (1.2-4.9) X10*3/uL [place] # (Auto) (0.1-1.2) X10*3/uL Eos # (Auto) (0.0-0.4) X10*3/uL Baso # (Auto) (0.0-0.2) X10*3/uL Abs Immat Gran (auto) (0.00-0.03) X10*3/uL Absolute Neuts (auto) (2.0-8.3) x10*3/uL Absolute Nucleated RBC (0.0-0.012) X10*3/uL Nucleated RBC % (auto) (0.0-0.2) /100WBC Smear Tech's Comments VBG pH 7.31 L (7.32-7.43) VBG pCO2 42 mmHg VBG pO2 32 mmHg VBG HCO3 21 L (22-26) mmol/L VBG O2 Saturation 38.0 % VBG Base Excess -4.1 mmol/L Sodium (135-145) mmol/L Potassium (3.3-5.1) mmol/L Chloride (96-108) mmol/L Carbon Dioxide (22-29) mmol/L Anion Gap (12-20) BUN (9-16) mg/dL Creatinine (0.5-1.4) mg/dL Estim Creat Clear Calc Estimated GFR POC Glucose (60-115) mg/dL Random Glucose (60-115) mg/dL Lactic Acid 4.2 H* (0.5-2.0) mmol/L Lactic Acid F/U @ 2Hr (0.5-2.0) mmol/L Calcium (8.4-10.2) mg/dL Magnesium (1.6-2.6) mg/dL Total Bilirubin (0.0-1.0) mg/dL Direct Bilirubin (0.0-0.5) mg/dL AST (5-31) U/L ALT (0-31) U/L Alkaline Phosphatase (39-117) U/L Troponin I High Sens 17.8 H (<3.5-17.0) ng/L Total Protein (6.5-8.0) g/dL Albumin (3.5-5.0) g/dL Lipase (8-78) U/L TSH (0.32-4.0) uIU/mL Free T4 (0.71-1.85) ng/dL Urine Color Urine Appearance Urine pH (5.0-9.0) Ur Specific [place] (1.005-1.025) Urine Protein (Neg-Trace) mg/dL Urine Glucose (UA) (Negative) mg/dL Urine Ketones (Negative) mg/dL Urine Blood (Negative) Urine Nitrite (Negative) Ur Leukocyte Esterase (Negative) Urine RBC (0-2) /HPF Urine WBC (0-5) /HPF Ur Squamous Epith Cells (0-2) /HPF Urine Bacteria (None Seen) Hyaline Casts (0-2) /LPF Urine Yeast 12/01/22 12/01/22 Range/Units 11:56 13:13 WBC (4.8-10.8) X10*3/uL RBC (4.20-5.50) X10*6/uL Hgb (12.0-16.0) g/dl Hct (37.0-47.0) % MCV (80.0-98.0) fL MCH (27.0-33.0) pg MCHC (31.0-35.0) g/dl RDW (11.0-16.0) % Plt Count MPV Immature Gran % (Auto) (0.0-0.4) % Neut % (Auto) (45-73) % Lymph % (Auto) (20-40) % [place] % (Auto) (2-11) % Eos % (Auto) (0-4) % Baso % (Auto) (0-2) % Lymph # (Auto) (1.2-4.9) X10*3/uL [place] # (Auto) (0.1-1.2) X10*3/uL Eos # (Auto) (0.0-0.4) X10*3/uL Baso # (Auto) (0.0-0.2) X10*3/uL Abs Immat Gran (auto) (0.00-0.03) X10*3/uL Absolute Neuts (auto) (2.0-8.3) x10*3/uL Absolute Nucleated RBC (0.0-0.012) X10*3/uL Nucleated RBC % (auto) (0.0-0.2) /100WBC Smear Tech's Comments VBG pH (7.32-7.43) VBG pCO2 mmHg VBG pO2 mmHg VBG HCO3 (22-26) mmol/L VBG O2 Saturation % VBG Base Excess mmol/L Sodium (135-145) mmol/L Potassium (3.3-5.1) mmol/L Chloride (96-108) mmol/L Carbon Dioxide (22-29) mmol/L Anion Gap (12-20) BUN (9-16) mg/dL Creatinine (0.5-1.4) mg/dL Estim Creat Clear Calc Estimated GFR POC Glucose (60-115) mg/dL Random Glucose (60-115) mg/dL Lactic Acid (0.5-2.0) mmol/L Lactic Acid F/U @ 2Hr 4.7 H* (0.5-2.0) mmol/L Calcium (8.4-10.2) mg/dL Magnesium (1.6-2.6) mg/dL Total Bilirubin (0.0-1.0) mg/dL Direct Bilirubin (0.0-0.5) mg/dL AST (5-31) U/L ALT (0-31) U/L Alkaline Phosphatase (39-117) U/L Troponin I High Sens (<3.5-17.0) ng/L Total Protein (6.5-8.0) g/dL Albumin (3.5-5.0) g/dL Lipase (8-78) U/L TSH (0.32-4.0) uIU/mL Free T4 (0.71-1.85) ng/dL Urine Color Yellow Urine Appearance Clear Urine pH 5.5 (5.0-9.0) Ur Specific [place] >= 1.030 H (1.005-1.025) Urine Protein Trace (Neg-Trace) mg/dL Urine Glucose (UA) >=1000 H (Negative) mg/dL Urine Ketones Negative (Negative) mg/dL Urine Blood Negative (Negative) Urine Nitrite Negative (Negative) Ur Leukocyte Esterase Negative (Negative) Urine RBC 3-5 H (0-2) /HPF Urine WBC 11-20 H (0-5) /HPF Ur Squamous Epith Cells 3-5 (0-2) /HPF Urine Bacteria Trace (None Seen) Hyaline Casts 3-5 (0-2) /LPF Urine Yeast Present Discharge Plan Discharge Clinical Impression: Metabolic acidosis Patient Disposition: Admitted As Inpatient Prescriptions: No Action metformin 1,000 mg tablet 1,000 mg PO BID (DME) insulin syringe-needle U-100 [BD Insulin Syringe Ultra-Fine] 1 mL 31 gauge x 5/16 syringe See Rx Instructions .ROUTE .MEDSUPPLY Qty: 10 Rx Instructions: As directed lisinopril 20 mg tablet 20 mg PO DAILY levothyroxine [Synthroid] 75 mcg tablet 75 mcg PO DAILY pravastatin 10 mg tablet 10 mg PO BEDTIME aspirin [Adult Low Dose Aspirin] 81 mg tablet,delayed release (DR/EC) 81 mg PO DAILY
[2022-12-01 06:42] LABS: Hemoglobin 16.1 g/dl (12.0-16.0); Imm Gran Pct Auto 0.4 % (0.0-0.4); MANUAL DIFF FLAG SCAN; Mean Corpuscular Volume 86.7 fL (80.0-98.0); SCAN SMEAR FLAG 1
[2022-12-01 06:44] LABS: Basophils Absolute Auto 0.1 X10*3/uL (0.0-0.2); Basophils Percent Auto 0.6 % (0-2); Eosinophils Absolute Auto 0.1 X10*3/uL (0.0-0.4); Eosinophils Percent Auto 0.4 % (0-4); Hematocrit 49.7 % (37.0-47.0); Imm Gran Abs Auto 0.07 X10*3/uL (0.00-0.03); Lymphocytes Absolute Auto 2.8 X10*3/uL (1.2-4.9); Lymphocytes Percent Auto 15.5 % (20-40); Mean Corpuscular HGB Conc 32.4 g/dl (31.0-35.0); Mean Corpuscular Hemoglobin 28.1 pg (27.0-33.0); Monocytes Absolute Auto 1.1 X10*3/uL (0.1-1.2); Neutrophils Percent Auto 77.1 % (45-73); PLT CLUMP 1; Red Blood Count 5.73 X10*6/uL (4.20-5.50); Red Cell Distribution Width 13.5 % (11.0-16.0)
[2022-12-01 06:56] LABS: PLT ABN DIST 1
[2022-12-01] MEDS: 0.9 % Sodium Chloride 1,000 ML 999 ML IV ×3 (06:57→12:38)
--- NOTE | 2022-12-01 07:02 | PC.NURSE ---
resumed care of patient this AM she is resting in bed with at bedside, pt has complaints of nausea at this time, IV fluids/med ordered and given
[2022-12-01 07:03] LABS: Anion Gap 18 (12-20); Blood Urea Nitrogen 13 mg/dL (9-16); Calcium 9.1 mg/dL (8.4-10.2); Carbon Dioxide 17 mmol/L (22-29); Chloride 107 mmol/L (96-108); Creatinine Clr Calc Pharmacy 73.4; Estimated Glomerular Filt Rate > 60; Glucose Random 285 mg/dL (60-115); Sodium 138 mmol/L (135-145)
[2022-12-01] MEDS: ondansetron HCL 4 MG/2 ML VIAL IVPUSH ×3 (07:08→22:29)
[2022-12-01 07:12] LABS: White Blood Count 18.2 X10*3/uL (4.8-10.8)
[2022-12-01 07:15] LABS: SLIDE REVIEW VERIFIED
[2022-12-01 07:31] LABS: Alanine Aminotransferase 52 U/L (0-31); Albumin Level 3.7 g/dL (3.5-5.0); Alkaline Phosphatase 110 U/L (39-117); Aspartate Amino Transferase 47 U/L (5-31); Bilirubin Direct 0.1 mg/dL (0.0-0.5); Bilirubin Total 0.3 mg/dL (0.0-1.0); Lipase 36 U/L (8-78); Total Protein 6.8 g/dL (6.5-8.0); Troponin-I High Sensitivity 19.8 ng/L (<3.5-17.0)
[2022-12-01 07:45] LABS: TSH reflex Free T4 4.96 uIU/mL (0.32-4.0)
[2022-12-01 07:45] LABS: Lactic Acid 4.4 mmol/L (0.5-2.0)
[2022-12-01 07:54] LABS: Glucose, Whole Blood 276 mg/dL (60-115)
[2022-12-01 08:20] LABS: Free T4 (Free Thyroxine) 1.11 ng/dL (0.71-1.85)
[2022-12-01 08:40] LABS: Venous Blood Gas Refer to POC result
[2022-12-01 08:43] LABS: VBG Base Excess -4.1 mmol/L; VBG HCO3 21 mmol/L (22-26); VBG pCO2 42 mmHg; VBG pH 7.31 (7.32-7.43); VBG pO2 32 mmHg
[2022-12-01 09:31] LABS: Reflex Lactate? Lactic Acid Added
[2022-12-01 10:12] LABS: Troponin-I High Sensitivity 17.8 ng/L (<3.5-17.0)
[2022-12-01 10:14] LABS: Lactic Acid 4.2 mmol/L (0.5-2.0)
[2022-12-01] MEDS: Piperacillin Sodium/Tazobactam 3.375 GM in 0.9 % Sodium Chloride 50 ML IV ×3 (10:38→22:29)
--- NOTE | 2022-12-01 10:44 | PC.NURSE ---
Questioned w/ provider on if pt should be sepsis alert, based on labs, provider agreed, fluids ordered, antx ordered, cultures drawn at this time
[2022-12-01 11:34] LABS: Reflex Lactate? Lactic Acid Added
[2022-12-01 12:30] LABS: ~Lactic Acid-LAB USE ONLY 4.7 mmol/L (0.5-2.0)
[2022-12-01] MEDS: diphenhydrAMINE HCL 50 MG/ML VIAL 25 MG IVPUSH (12:52)
[2022-12-01 13:24] LABS: Appearance Urine Clear; Color Urine Yellow; Glucose Urine UA >=1000 mg/dL (Negative); Leukocyte Esterase Urine Negative (Negative); Nitrite Urine Negative (Negative); PH 5.5 (5.0-9.0); Specific Gravity - Urine >= 1.030 (1.005-1.025); UMIC TRIGGER UACC YES; Urine Blood Negative (Negative); Urine Ketones Negative (Negative); Urine Protein Trace mg/dL (Neg-Trace)
[2022-12-01] MEDS: iohexoL 350 MG/ML 100 ML INFUS..BTL 85 ML IV (13:28)
[2022-12-01 13:45] LABS: Bacteria Urine Trace (None Seen); UACC Culture Trigger YES
[2022-12-01 13:58] LABS: Reflex Lactate? 2 Y
--- NOTE | 2022-12-01 14:38 | PC.NURSE ---
Pt refusing to do orthostatic BP, d/t nausea, per provider not drawing next lactic at this time that is currently ordered
--- NOTE | 2022-12-01 16:08 | PHA.MEDREC ---
Pharmacy Consult ? Medication Reconciliation Pharmacy has completed the medication reconciliation. Spoke to patient to confirm meds. Patient currently takes 55 units of lantus at bedtime.
--- NOTE | 2022-12-01 16:17 | PM.IMHP ---
History of Present Illness Date of Service: 12/01/22 Chief Complaint: syncope 72-year-old female with history T2 dm, HTN, hypothyroid, cholecystectomy, CVA at age 37 presenting to the emergency department via EMS after episode of nausea, vomiting, and diarrhea at home.? Patient reports she was awake from 2am-4am and around 4:20 felt nauseated.? She went to get off the bed to go to the bathroom and felt weak, believes she may have passed out.? She then had diaphoresis, vomiting and diarrhea where she was laying on the floor.? She remembers her administering OJ and brown sugar.? She reports approximately 4 prior similar episodes in the past 5-6 years.? She reports 1 other evaluation in an emergency department following 1 of these episodes.? She currently denies any abdominal pain, does report ongoing nausea, states she feels better lying on her left side.? Reports she felt normal yesterday.? Denies recent fevers.? Denies chest pain or shortness of breath.? Denies dizziness or lightheadedness yesterday.? Reports that emesis was food, no blood, no bile.? Denies hematochezia or melena.? , who is a physician, reports patient slid from their bed onto carpeted floor and had non-focal seizure like movements.? He states her BP was low for EMS with SBP around 80. Back to baseline in ER Review of Systems Review of Systems: Denies chest pain Denies shortness of breath Admits nausea vomiting diarrhea Denies fever chills [facility] Medical History (Updated 12/01/22 @ 16:24 by Kehinde Stahl DO) Diabetes Hypertension Hypothyroidism Surgical History H/O right knee surgery Social History Advance Directives: Yes Advance Directives Information Provided: Yes Advance Directives on File: No Meds Allergies Allergy/AdvReac Type Severity Reaction Status Date / Time shellfish derived Allergy Severe Anaphylaxis, Verified 12/01/22 07:05 Hives, Shortness of Breath SILK TAPE Allergy Mild RASH Uncoded 03/11/20 15:16 Active Medications: Current Medications Enoxaparin Sodium (Enoxaparin Sodium 40 Mg/0.4 Ml Syringe) 40 mg SUBCUT Q24H [place] Glucose (Glucose Gel 15 Gm Gel..Gram.) 15 gm PO Q15M PRN; Protocol PRN Reason: per Hypoglycemia Standing Ord. Piperacillin Sod/Tazobactam (Sod 3.375 gm/ Sodium Chloride) 50 mls @ 100 mls/hr IV Q6H [place] Lactated Ringer's (Lr) 1,000 mls @ 100 mls/hr IVCONT .Q10H [place] Dextrose (D10) 250 mls @ 750 mls/hr IV Q15M PRN; Protocol PRN Reason: per Hypoglycemia Standing Ord. Insulin Human Lispro (Insulin Lispro 100 Unit/Ml 3 Ml Vial) 0 unit SUBCUT QIDACHS [place]; Protocol Levothyroxine Sodium (Levothyroxine Sodium 75 Mcg Tablet) 75 mcg PO DAILY@0600 [facility] [place] Ondansetron HCl (Ondansetron Hcl 4 Mg/2 Ml Vial) 4 mg IVPUSH Q6H [facility] [place] Sodium Chloride (0.9 % Sodium Chloride Flush 3 Ml Syringe) 3 ml IVFLUSH QSHIFT [facility] [place] Home Medications Medication Instructions Recorded Confirmed Last Taken Type aspirin 81 mg tablet,delayed 81 mg PO BEDTIME 03/09/22 12/01/22 11/30/22 History release (Adult Low Dose Aspirin) insulin syringe-needle U-100 1 mL #10 ea 03/09/22 Unknown History 31 gauge x 5/16 (BD Insulin Syringe Ultra-Fine) levothyroxine 75 mcg tablet 75 mcg PO DAILY@0600 03/09/22 12/01/22 11/30/22 History (Synthroid) lisinopril 20 mg tablet 20 mg PO DAILY 03/09/22 12/01/22 11/30/22 History metformin 1,000 mg tablet 1,000 mg PO BID 03/09/22 12/01/22 11/30/22 History pravastatin 10 mg tablet 10 mg PO BEDTIME 03/09/22 12/01/22 11/30/22 History empagliflozin 10 mg tablet 10 mg PO DAILY 12/01/22 12/01/22 11/30/22 History (Jardiance) insulin glargine 100 unit/mL 55 unit subcut BEDTIME 12/01/22 12/01/22 11/30/22 History subcutaneous solution (Lantus U-100 Insulin) Physical Exam Vital Signs and Narrative: Vital Signs: Last Vital Signs Temp 97.7 F 12/01/22 14:04 Pulse 65 12/01/22 14:19 Resp 18 12/01/22 14:19 BP 158/60 H 12/01/22 14:19 Pulse Ox 100 12/01/22 14:19 O2 Del Method Room Air 12/01/22 14:19 BMI result Body Mass Index 37.9 Const: Other: Awake alert no acute distress Resp: Other: Clear to auscultation bilaterally no rales rhonchi wheezes Cardio: Other: No S4; positive S1-S2; no S3 murmurs rubs or gallops GI: Other: Soft minimal right lower quadrant tenderness without rebound. Quiet bowel sounds Neuro: Other: Cranial nerves 2-12 grossly intact as tested. Motor is 5/5 all extremities. Sensory is intact. Cognition appropriate Extrem: Other: No edema bilaterally Results Labs 12/01/22 06:38 12/01/22 06:38 Labs: Laboratory Results - last 24 hr 12/01/22 12/01/22 12/01/22 06:08 06:38 06:38 MCV 86.7 MCH 28.1 MCHC 32.4 RDW 13.5 Plt Count TNP MPV Not Reportable Immature Gran % (Auto) 0.4 Neut % (Auto) 77.1 H Lymph % (Auto) 15.5 L [place] % (Auto) 6.0 Eos % (Auto) 0.4 Baso % (Auto) 0.6 Lymph # (Auto) 2.8 [place] # (Auto) 1.1 Eos # (Auto) 0.1 Baso # (Auto) 0.1 Abs Immat Gran (auto) 0.07 H Absolute Neuts (auto) 14.0 H Absolute Nucleated RBC 0.000 Nucleated RBC % (auto) 0.0 Smear Tech's Comments VERIFIED VBG pH VBG pCO2 VBG pO2 VBG HCO3 VBG O2 Saturation VBG Base Excess Anion Gap 18 Estim Creat Clear Calc 73.4 Estimated GFR > 60 POC Glucose 276 H Random Glucose 285 H Lactic Acid Lactic Acid F/U @ 2Hr Calcium 9.1 Magnesium Total Bilirubin Direct Bilirubin AST ALT Alkaline Phosphatase Troponin I High Sens Total Protein Albumin Lipase TSH Free T4 Urine Color Urine Appearance Urine pH Ur Specific [place] Urine Protein Urine Glucose (UA) Urine Ketones Urine Blood Urine Nitrite Ur Leukocyte Esterase Urine RBC Urine WBC Ur Squamous Epith Cells Urine Bacteria Hyaline Casts Urine Yeast 12/01/22 12/01/22 12/01/22 07:04 07:04 07:28 MCV MCH MCHC RDW Plt Count MPV Immature Gran % (Auto) Neut % (Auto) Lymph % (Auto) [place] % (Auto) Eos % (Auto) Baso % (Auto) Lymph # (Auto) [place] # (Auto) Eos # (Auto) Baso # (Auto) Abs Immat Gran (auto) Absolute Neuts (auto) Absolute Nucleated RBC Nucleated RBC % (auto) Smear Tech's Comments VBG pH VBG pCO2 VBG pO2 VBG HCO3 VBG O2 Saturation VBG Base Excess Anion Gap Estim Creat Clear Calc Estimated GFR POC Glucose Random Glucose Lactic Acid 4.4 H* Lactic Acid F/U @ 2Hr Calcium Magnesium 2.0 Total Bilirubin 0.3 Direct Bilirubin 0.1 AST 47 H ALT 52 H Alkaline Phosphatase 110 Troponin I High Sens 19.8 H Total Protein 6.8 Albumin 3.7 Lipase 36 TSH 4.96 H Free T4 1.11 Urine Color Urine Appearance Urine pH Ur Specific [place] Urine Protein Urine Glucose (UA) Urine Ketones Urine Blood Urine Nitrite Ur Leukocyte Esterase Urine RBC Urine WBC Ur Squamous Epith Cells Urine Bacteria Hyaline Casts Urine Yeast 12/01/22 12/01/22 12/01/22 08:36 09:30 09:30 MCV MCH MCHC RDW Plt Count MPV Immature Gran % (Auto) Neut % (Auto) Lymph % (Auto) [place] % (Auto) Eos % (Auto) Baso % (Auto) Lymph # (Auto) [place] # (Auto) Eos # (Auto) Baso # (Auto) Abs Immat Gran (auto) Absolute Neuts (auto) Absolute Nucleated RBC Nucleated RBC % (auto) Smear Tech's Comments VBG pH 7.31 L VBG pCO2 42 VBG pO2 32 VBG HCO3 21 L VBG O2 Saturation 38.0 VBG Base Excess -4.1 Anion Gap Estim Creat Clear Calc Estimated GFR POC Glucose Random Glucose Lactic Acid 4.2 H* Lactic Acid F/U @ 2Hr Calcium Magnesium Total Bilirubin Direct Bilirubin AST ALT Alkaline Phosphatase Troponin I High Sens 17.8 H Total Protein Albumin Lipase TSH Free T4 Urine Color Urine Appearance Urine pH Ur Specific [place] Urine Protein Urine Glucose (UA) Urine Ketones Urine Blood Urine Nitrite Ur Leukocyte Esterase Urine RBC Urine WBC Ur Squamous Epith Cells Urine Bacteria Hyaline Casts Urine Yeast 12/01/22 12/01/22 11:56 13:13 MCV MCH MCHC RDW Plt Count MPV Immature Gran % (Auto) Neut % (Auto) Lymph % (Auto) [place] % (Auto) Eos % (Auto) Baso % (Auto) Lymph # (Auto) [place] # (Auto) Eos # (Auto) Baso # (Auto) Abs Immat Gran (auto) Absolute Neuts (auto) Absolute Nucleated RBC Nucleated RBC % (auto) Smear Tech's Comments VBG pH VBG pCO2 VBG pO2 VBG HCO3 VBG O2 Saturation VBG Base Excess Anion Gap Estim Creat Clear Calc Estimated GFR POC Glucose Random Glucose Lactic Acid Lactic Acid F/U @ 2Hr 4.7 H* Calcium Magnesium Total Bilirubin Direct Bilirubin AST ALT Alkaline Phosphatase Troponin I High Sens Total Protein Albumin Lipase TSH Free T4 Urine Color Yellow Urine Appearance Clear Urine pH 5.5 Ur Specific [place] >= 1.030 H Urine Protein Trace Urine Glucose (UA) >=1000 H Urine Ketones Negative Urine Blood Negative Urine Nitrite Negative Ur Leukocyte Esterase Negative Urine RBC 3-5 H Urine WBC 11-20 H Ur Squamous Epith Cells 3-5 Urine Bacteria Trace Hyaline Casts 3-5 Urine Yeast Present Imaging Radiologist's Impressions: Impressions Cervical Spine CT 12/01/22 09:23 IMPRESSION: Head CT: No acute findings. Probable old left posterior parietal periventricular/subcortical white matter infarct. Cervical spine CT: Degenerative changes. No fracture or dislocation. Head CT 12/01/22 09:23 IMPRESSION: Head CT: No acute findings. Probable old left posterior parietal periventricular/subcortical white matter infarct. Cervical spine CT: Degenerative changes. No fracture or dislocation. Chest X-Ray 12/01/22 11:03 IMPRESSION: Unremarkable examination. Abdomen/Pelvis CT 12/01/22 13:37 IMPRESSION: Wedge-shaped low-attenuation areas in the spleen and bilateral kidneys. Appearance is suggestive of infarcts. Differential would include infection. Clinical correlation recommended. Small left renal stone. Cirrhotic-appearing liver. Small amount of ascites. Question mild wall thickening of the small bowel. Diverticulosis. 5 mm left lower lobe nodule. Chest CT follow-up recommended. Fleischner guidelines were followed. Assessment and Plan (1) Syncope: Status: Acute (2) Metabolic acidosis: Status: Acute (3) Hypertension: Status: Acute (4) Hypothyroidism: Status: Acute Plan 72-year-old female with history of type 2 diabetes hypertension hypothyroidism presents after a questionable syncopal episode overnight. describes patient essentially rolling out of bed with some tremulous activity. States was given orange juice and sugar and subsequent sugar was 151. Patient was incontinent of a large amount of stool. When queried patient states she felt crampy and diffuse lower abdominal pain prior to episode. 1.Syncope(query vegal) -admit to telemetry -IV volume repletion -eventual EEG to rule out seizure 2. Metabolic acidosis (not septic on arrival) -likely multifactorial; given hypotension and metformin -follow labs in a.m. 3. Hypertension -acceptable control -hold oral agents in add back when clinically appropriate 4. Hypothyroidism -euthyroid on supplements -continue same 5. Abnormal CT abdomen pelvis (wedge-shaped defect question infection versus infarct) along with active urinary sediment/white count -empiric Zosyn -await cultures Full code Lovenox Will require 2 nights inpatient stay from. Treatment of question UTI/renal infection. This cannot be achieved a lesser acute setting Time Spent With Patient Time: Total time managing care of this patient today ____ minutes. Quality Stroke Does the patient have a stroke diagnosis?: No VTE Prior VTE?: No VTE Risk Level:: Medical - moderate - high VTE Device Contraindication: Treatment Not Indicated VTE Drug Contraindication: N/A - Med Ordered
[2022-12-01] MEDS: Enoxaparin Sodium 40 MG/0.4 ML SYRINGE SUBCUT (16:57)
[2022-12-01] MEDS: Lactated Ringers 1,000 ML 100 ML IVCONT (16:57)
[2022-12-01 17:25] LABS: Glucose, Whole Blood 129 mg/dL (60-115)
[2022-12-01 21:06] LABS: Glucose, Whole Blood 151 mg/dL (60-115)
[2022-12-01] MEDS: Insulin Lispro 100 UNIT/ML 3 ML VIAL SUBCUT (21:11)
[2022-12-02] VITALS (7 sets, daily range): BP systolic 144–184; BP diastolic 66–82; PULSE 59–81; RESP 14–18; TEMP 36.2–37.4; O2SAT 94–97
--- NOTE | 2022-12-02 00:15 | PC.NURSE ---
Pt hypertensive, BP 199/81 automatic, 184/80 manual, HR 79. asymptomatic, however did not take BP med in am due to syncope. Also low grade temp 99.3, notified and ordered IV labetalol brien and tylenol
[2022-12-02] MEDS: Acetaminophen 325 MG TABLET 650 MG PO ×3 (00:23→15:50)
[2022-12-02] MEDS: Labetalol HCL 100 MG/20 ML VIAL 10 MG IVPUSH (00:24)
[2022-12-02] MEDS: Lactated Ringers 1,000 ML 100 ML IVCONT ×3 (01:20→22:50)
[2022-12-02] MEDS: ondansetron HCL 4 MG/2 ML VIAL IVPUSH ×4 (05:43→23:00)
[2022-12-02] MEDS: Piperacillin Sodium/Tazobactam 3.375 GM in 0.9 % Sodium Chloride 50 ML IV ×4 (05:43→23:00)
[2022-12-02] MEDS: Levothyroxine Sodium 75 MCG TABLET PO (05:43)
[2022-12-02 06:57] LABS: MANUAL DIFF FLAG NO
[2022-12-02 07:05] LABS: Basophils Absolute Auto 0.1 X10*3/uL (0.0-0.2); Basophils Percent Auto 0.9 % (0-2); Eosinophils Percent Auto 0.5 % (0-4); Hemoglobin 11.5 g/dl (12.0-16.0); Imm Gran Abs Auto 0.02 X10*3/uL (0.00-0.03); Imm Gran Pct Auto 0.3 % (0.0-0.4); Lymphocytes Percent Auto 25.2 % (20-40); Mean Corpuscular HGB Conc 31.9 g/dl (31.0-35.0); Mean Corpuscular Hemoglobin 28.5 pg (27.0-33.0); Mean Corpuscular Volume 89.1 fL (80.0-98.0); Monocytes Absolute Auto 0.7 X10*3/uL (0.1-1.2); Monocytes Percent Auto 8.3 % (2-11); Neutrophils Absolute Auto 5.1 x10*3/uL (2.0-8.3); Neutrophils Percent Auto 64.8 % (45-73); Red Blood Count 4.04 X10*6/uL (4.20-5.50); Red Cell Distribution Width 13.7 % (11.0-16.0); White Blood Count 7.8 X10*3/uL (4.8-10.8)
[2022-12-02 07:39] LABS: Alanine Aminotransferase 60 U/L (0-31); Albumin Level 3.3 g/dL (3.5-5.0); Alkaline Phosphatase 84 U/L (39-117); Anion Gap 12 (12-20); Aspartate Amino Transferase 76 U/L (5-31); Bilirubin Total 0.6 mg/dL (0.0-1.0); Blood Urea Nitrogen 9 mg/dL (9-16); Calcium 8.4 mg/dL (8.4-10.2); Carbon Dioxide 25 mmol/L (22-29); Chloride 110 mmol/L (96-108); Creatinine Clr Calc Pharmacy 86.5; Estimated Glomerular Filt Rate > 60; Glucose Fasting 166 mg/dL (60-99); Potassium 4.2 mmol/L (3.3-5.1); Sodium 143 mmol/L (135-145); Total Protein 5.8 g/dL (6.5-8.0)
[2022-12-02 07:46] LABS: Glucose, Whole Blood 177 mg/dL (60-115)
[2022-12-02 07:49] LABS: Platelet Count 121 X10*3/uL (160-400)
[2022-12-02] MEDS: Insulin Lispro 100 UNIT/ML 3 ML VIAL SUBCUT ×4 (08:26→20:50)
[2022-12-02 11:39] LABS: Glucose, Whole Blood 221 mg/dL (60-115)
--- NOTE | 2022-12-02 12:27 | P.PNIM_ITS ---
Subjective Subjective Date of Service: 12/02/22 Interval History: Markedly improved overnight. White count normalized. Remains afebrile. No nausea Review of Systems Denies chest pain Denies shortness of breath Denies nausea vomiting diarrhea Denies fever chills Physical Exam Vital Signs: Vital Signs: Last Vital Signs Temp 97.4 F 12/02/22 11:13 Pulse 59 12/02/22 11:13 Resp 18 12/02/22 11:13 BP 170/72 H 12/02/22 11:13 Pulse Ox 97 12/02/22 11:13 O2 Del Method Room Air 12/02/22 11:13 BMI result Body Mass Index 39.1 Const: Other: Awake alert no acute distress Resp: Other: Clear to auscultation bilaterally no rales rhonchi wheezes Cardio: Other: No S4; positive S1-S2; no S3 murmurs rubs or gallops GI: Other: Soft minimal right lower quadrant tenderness without rebound. Quiet bowel sounds Neuro: Other: Cranial nerves 2-12 grossly intact as tested. Motor is 5/5 all extremities. Sensory is intact. Cognition appropriate Extrem: Other: No edema bilaterally Objective Data Active Medications Acetaminophen (Acetaminophen 325 Mg Tablet) 650 mg PO Q4H PRN PRN Reason: Fever >100.4 Last Admin: 12/02/22 09:59 Dose: 650 mg Documented By: SHANNAN Aspirin (Aspirin Enteric Coated 81 Mg Tablet.Dr) 81 mg PO BEDTIME [facility] Empagliflozin (Empagliflozin 10 Mg Tablet) 10 mg PO DAILY [facility] Enoxaparin Sodium (Enoxaparin Sodium 40 Mg/0.4 Ml Syringe) 40 mg SUBCUT Q24H [facility] Last Admin: 12/01/22 16:57 Dose: 40 mg Documented By: DONN Glucose (Glucose Gel 15 Gm Gel..Gram.) 15 gm PO Q15M PRN; Protocol PRN Reason: per Hypoglycemia Standing Ord. Piperacillin Sod/Tazobactam (Sod 3.375 gm/ Sodium Chloride) 50 mls @ 100 mls/hr IV Q6H [facility] Last Infusion: 12/02/22 10:45 Dose: 0 mls/hr Documented By: SHANNAN Lactated Ringer's (Lr) 1,000 mls @ 100 mls/hr IVCONT .Q10H [facility] Last Infusion: 12/02/22 10:50 Dose: 100 mls/hr Documented By: SHANNAN Dextrose (D10) 250 mls @ 750 mls/hr IV Q15M PRN; Protocol PRN Reason: per Hypoglycemia Standing Ord. Insulin Human Lispro (Insulin Lispro 100 Unit/Ml 3 Ml Vial) 0 unit SUBCUT QIDACHS [facility]; Protocol Last Admin: 12/02/22 12:10 Dose: 4 unit Documented By: SHANNAN Levothyroxine Sodium (Levothyroxine Sodium 75 Mcg Tablet) 75 mcg PO DAILY@0600 [facility] Last Admin: 12/02/22 05:43 Dose: 75 mcg Documented By: LANCE Lisinopril (Lisinopril 20 Mg Tablet) 20 mg PO DAILY [facility]; Protocol Ondansetron HCl (Ondansetron Hcl 4 Mg/2 Ml Vial) 4 mg IVPUSH Q6H [facility] Last Admin: 12/02/22 09:56 Dose: 4 mg Documented By: SHANNAN Pharmacy Consult (Consult Rx Perform Med Rec) 1 each MISCELLANE ONCE PRN PRN Reason: Consult order Pravastatin Sodium (Pravastatin Sodium 10 Mg Tablet) 10 mg PO BEDTIME [facility] Sodium Chloride (0.9 % Sodium Chloride Flush 3 Ml Syringe) 3 ml IVFLUSH QSHIFT [facility] Last Admin: 12/02/22 08:26 Dose: Not Given Documented By: SHANNAN Non-Admin Reason: IV Running Labs 12/02/22 06:44 12/02/22 06:44 Labs: Laboratory Results - last 24 hr 12/01/22 12/01/22 12/01/22 11:56 13:13 17:13 MCV MCH MCHC RDW Plt Count MPV Immature Gran % (Auto) Neut % (Auto) Lymph % (Auto) Baxter % (Auto) Eos % (Auto) Baso % (Auto) Lymph # (Auto) [place] # (Auto) Eos # (Auto) Baso # (Auto) Abs Immat Gran (auto) Absolute Neuts (auto) Absolute Nucleated RBC Nucleated RBC % (auto) Anion Gap Estim Creat Clear Calc Estimated GFR POC Glucose 129 H Fasting Glucose Lactic Acid F/U @ 2Hr 4.7 H* Calcium Total Bilirubin AST ALT Alkaline Phosphatase Total Protein Albumin Urine Color Yellow Urine Appearance Clear Urine pH 5.5 Ur Specific Jbphh >= 1.030 H Urine Protein Trace Urine Glucose (UA) >=1000 H Urine Ketones Negative Urine Blood Negative Urine Nitrite Negative Ur Leukocyte Esterase Negative Urine RBC 3-5 H Urine WBC 11-20 H Ur Squamous Epith Cells 3-5 Urine Bacteria Trace Hyaline Casts 3-5 Urine Yeast Present 12/01/22 12/02/22 12/02/22 21:02 06:44 06:44 MCV 89.1 MCH 28.5 MCHC 31.9 RDW 13.7 Plt Count 121 L MPV Not Reportable Immature Gran % (Auto) 0.3 Neut % (Auto) 64.8 Lymph % (Auto) 25.2 Baxter % (Auto) 8.3 Eos % (Auto) 0.5 Baso % (Auto) 0.9 Lymph # (Auto) 2.0 Baxter # (Auto) 0.7 Eos # (Auto) 0.0 Baso # (Auto) 0.1 Abs Immat Gran (auto) 0.02 Absolute Neuts (auto) 5.1 Absolute Nucleated RBC 0.000 Nucleated RBC % (auto) 0.0 Anion Gap 12 Estim Creat Clear Calc 86.5 Estimated GFR > 60 POC Glucose 151 H Fasting Glucose 166 H Lactic Acid F/U @ 2Hr Calcium 8.4 D Total Bilirubin 0.6 AST 76 H ALT 60 H Alkaline Phosphatase 84 Total Protein 5.8 L Albumin 3.3 L Urine Color Urine Appearance Urine pH Ur Specific Jbphh Urine Protein Urine Glucose (UA) Urine Ketones Urine Blood Urine Nitrite Ur Leukocyte Esterase Urine RBC Urine WBC Ur Squamous Epith Cells Urine Bacteria Hyaline Casts Urine Yeast 12/02/22 12/02/22 07:22 11:14 MCV MCH MCHC RDW Plt Count MPV Immature Gran % (Auto) Neut % (Auto) Lymph % (Auto) Baxter % (Auto) Eos % (Auto) Baso % (Auto) Lymph # (Auto) Baxter # (Auto) Eos # (Auto) Baso # (Auto) Abs Immat Gran (auto) Absolute Neuts (auto) Absolute Nucleated RBC Nucleated RBC % (auto) Anion Gap Estim Creat Clear Calc Estimated GFR POC Glucose 177 H 221 H Fasting Glucose Lactic Acid F/U @ 2Hr Calcium Total Bilirubin AST ALT Alkaline Phosphatase Total Protein Albumin Urine Color Urine Appearance Urine pH Ur Specific Jbphh Urine Protein Urine Glucose (UA) Urine Ketones Urine Blood Urine Nitrite Ur Leukocyte Esterase Urine RBC Urine WBC Ur Squamous Epith Cells Urine Bacteria Hyaline Casts Urine Yeast Microbiology Microbiology Results: Microbiology 12/01/22 10:20 Blood Culture - Preliminary Blood - Venous No growth after 24 hours. 12/01/22 Unknown Urine Culture - Final Urine clean catch - Urine benoit top No growth. Assessment and Plan (1) Syncope: Status: Acute (2) Metabolic acidosis: Status: Acute (3) Hypertension: Status: Acute (4) Hypothyroidism: Status: Acute Plan 72-year-old female with history of type 2 diabetes hypertension hypothyroidism presents after a questionable syncopal episode overnight. describes p atient essentially rolling out of bed with some tremulous activity. States was given orange juice and sugar and subsequent sugar was 151. Patient was incontinent of a large amount of stool. When queried patient states she felt crampy and diffuse lower abdominal pain prior to episode. 1.Syncope(query vegal) -admit to telemetry -IV volume repletion... Good response -eventual EEG to rule out seizure 2. Metabolic acidosis (not septic on arrival) -likely multifactorial; given hypotension and metformin... Resolved -follow labs in a.m. 3. Hypertension -add back lisinopril -adjust as indicated 4. Hypothyroidism -euthyroid on supplements -continue same 5. Abnormal CT abdomen pelvis (wedge-shaped defect question infection versus infarct) along with active urinary sediment/white count -empiric Zosyn -await cultures Full code Lovenox Will require 2 nights inpatient stay from. Treatment of question UTI/renal infection. This cannot be achieved a lesser acute setting Time Spent With Patient Time: Total time managing care of this patient today ____ minutes. Quality Stroke Does the patient have a stroke diagnosis?: No VTE Prior VTE?: No VTE Risk Level:: Medical - moderate - high VTE Device Contraindication: Treatment Not Indicated VTE Drug Contraindication: N/A - Med Ordered
[2022-12-02] MEDS: Empagliflozin 10 MG TABLET PO (12:42)
[2022-12-02] MEDS: lisinopriL 20 MG TABLET PO (12:43)
--- NOTE | 2022-12-02 15:03 | MHC.CM.PN ---
PT REPORTS SHE LIVES WITH HER AND IS INDEPENDENT WITH CARE SHE DENIES USE OF DME OR HOME SERVICES PT SAYS SHE HAS A HCP, COPY REQUESTED PCP: SLOANE BARROOS IMM DELIVERED CURRENT DC PLAN IS HOME WITH NO SERVICES TO TRANSPORT
[2022-12-02 16:31] LABS: Glucose, Whole Blood 189 mg/dL (60-115)
[2022-12-02] MEDS: Enoxaparin Sodium 40 MG/0.4 ML SYRINGE SUBCUT (17:06)
[2022-12-02 20:20] LABS: Glucose, Whole Blood 304 mg/dL (60-115)
[2022-12-02] MEDS: Aspirin Enteric Coated 81 MG TABLET.DR PO (20:50)
[2022-12-02] MEDS: Pravastatin Sodium 10 MG TABLET PO (20:50)
[2022-12-02] MEDS: 0.9 % Sodium Chloride Flush 3 ML SYRINGE IVFLUSH (20:53)
[2022-12-03] VITALS: BP 192/82; PULSE 78; RESP 20; TEMP 37.8; O2SAT 93
--- NOTE | 2022-12-03 01:17 | PC.NURSE ---
Addendum entered by Seda Ames RN 12/03/22 02:05: Pt given 10mg of Labetalol per MD order.Will recheck the bP in 15-30 mins. Original Note: 0052- pt BP was elevated. 190s/80s. No other symptoms. MD notified. No further orders noted.
[2022-12-03] MEDS: Labetalol HCL 100 MG/20 ML VIAL 10 MG IVPUSH (01:54)
[2022-12-03] MEDS: Acetaminophen 325 MG TABLET 650 MG PO ×2 (01:57→08:02)
[2022-12-03 02:44] VITALS: BP 168/70; PULSE 73; RESP 20; O2SAT 93
[2022-12-03 03:43] VITALS: BP 148/66; PULSE 66; RESP 20; TEMP 36.9; O2SAT 96
[2022-12-03] MEDS: Piperacillin Sodium/Tazobactam 3.375 GM in 0.9 % Sodium Chloride 50 ML IV ×2 (05:05→10:25)
[2022-12-03] MEDS: Levothyroxine Sodium 75 MCG TABLET PO (05:11)
[2022-12-03 06:18] LABS: MANUAL DIFF FLAG NO
[2022-12-03 06:33] LABS: Alanine Aminotransferase 53 U/L (0-31); Albumin Level 3.4 g/dL (3.5-5.0); Alkaline Phosphatase 99 U/L (39-117); Anion Gap 13 (12-20); Aspartate Amino Transferase 53 U/L (5-31); Bilirubin Total 0.8 mg/dL (0.0-1.0); Blood Urea Nitrogen 10 mg/dL (9-16); Calcium 8.7 mg/dL (8.4-10.2); Carbon Dioxide 26 mmol/L (22-29); Chloride 107 mmol/L (96-108); Creatinine Clr Calc Pharmacy 82.2; Estimated Glomerular Filt Rate > 60; Glucose Fasting 177 mg/dL (60-99); Potassium 4.3 mmol/L (3.3-5.1); Sodium 142 mmol/L (135-145); Total Protein 6.1 g/dL (6.5-8.0)
[2022-12-03 06:41] LABS: Basophils Absolute Auto 0.1 X10*3/uL (0.0-0.2); Basophils Percent Auto 0.5 % (0-2); Eosinophils Percent Auto 0.2 % (0-4); Hemoglobin 11.6 g/dl (12.0-16.0); Imm Gran Abs Auto 0.05 X10*3/uL (0.00-0.03); Imm Gran Pct Auto 0.5 % (0.0-0.4); Lymphocytes Percent Auto 20.7 % (20-40); Mean Corpuscular HGB Conc 32.2 g/dl (31.0-35.0); Mean Corpuscular Hemoglobin 28.7 pg (27.0-33.0); Mean Corpuscular Volume 89.1 fL (80.0-98.0); Mean Platelet Volume 13.5 fL (9.4-12.3); Monocytes Absolute Auto 0.8 X10*3/uL (0.1-1.2); Monocytes Percent Auto 8.5 % (2-11); Neutrophils Absolute Auto 6.8 x10*3/uL (2.0-8.3); Neutrophils Percent Auto 69.6 % (45-73); Red Blood Count 4.04 X10*6/uL (4.20-5.50); Red Cell Distribution Width 13.5 % (11.0-16.0); White Blood Count 9.8 X10*3/uL (4.8-10.8)
[2022-12-03 06:43] LABS: Platelet Count 96 X10*3/uL (160-400)
[2022-12-03 07:45] VITALS: BP 180/65; PULSE 76; RESP 18; TEMP 36.7; O2SAT 96
[2022-12-03] MEDS: Empagliflozin 10 MG TABLET PO (08:00)
[2022-12-03] MEDS: lisinopriL 20 MG TABLET PO (08:00)
[2022-12-03] MEDS: Insulin Lispro 100 UNIT/ML 3 ML VIAL SUBCUT ×2 (08:01→11:51)
[2022-12-03] MEDS: 0.9 % Sodium Chloride Flush 3 ML SYRINGE IVFLUSH (08:01)
[2022-12-03 08:09] LABS: Glucose, Whole Blood 159 mg/dL (60-115)
[2022-12-03 09:30] VITALS: BP 176/64
[2022-12-03] MEDS: ondansetron HCL 4 MG/2 ML VIAL IVPUSH (10:23)
[2022-12-03 11:00] VITALS: BP 168/64; PULSE 55; RESP 18; TEMP 36.3; O2SAT 95
[2022-12-03 11:35] LABS: Glucose, Whole Blood 184 mg/dL (60-115)
--- NOTE | 2022-12-03 14:02 | P.DS_ITS ---
DS: Providers Provider Date of Service: 12/03/22 Date of admission: 12/01/22 16:11 Date of discharge: 12/03/22 Primary care physician: Faraz Bethea MD DS: Diagnosis Discharge Diagnosis (1) Syncope: Status: Acute (2) Metabolic acidosis: Status: Acute (3) Hypertension: Status: Acute (4) Hypothyroidism: Status: Acute DS: Summary Hospital Course Hospital Course: 72-year-old female with history T2 dm, HTN, hypothyroid, cholecystectomy, CVA at age 37 presenting to the emergency department via EMS after episode of nausea, vomiting, and diarrhea at home.? Patient reports she was awake from 2am-4am and around 4:20 felt nauseated.? She went to get off the bed to go to the bathroom and felt weak, believes she may have passed out.? She then had diaphoresis, vomiting and diarrhea where she was laying on the floor.? She remembers her administering OJ and brown sugar.? She reports approximately 4 prior similar episodes in the past 5-6 years.? She reports 1 other evaluation in an emergency department following 1 of these episodes.? She currently denies any abdominal pain, does report ongoing nausea, states she feels better lying on her left side.? Reports she felt normal yesterday.? Denies recent fevers.? Denies chest pain or shortness of breath.? Denies dizziness or lightheadedness yesterday.? Reports that emesis was food, no blood, no bile.? Denies hematochezia or melena.? , who is a physician, reports patient slid from their bed onto carpeted floor and had non-focal seizure like movements.? He states her BP was low for EMS with SBP around 80.? Back to baseline in ER discharged home to follow-up with her [facility] Admitted to telemetry where monitor failed to demonstrate any acute dysrhythmias. Empirically treated with Zosyn. Blood and urine cultures remain negative. No symptoms for 48 hours. On the day of discharge patient is ambulatory in the rice without issue. At this point time she is medically acceptable to be Time Spent with Patient Time attestation: Total time managing care of this patient today ____ minutes. Discharge coordination time: Greater than 30 minutes Quality: Safe Use of Opioids Does Pt have an Active Cancer Diagnosis on the Problem List?: No Quality: Stroke Does the patient have a stroke diagnosis?: No Physical Exam Vital Signs: Vital Signs: Last Vital Signs Temp 97.3 F 12/03/22 11:00 Pulse 55 12/03/22 11:00 Resp 18 12/03/22 11:00 BP 168/64 H 12/03/22 11:00 Pulse Ox 95 12/03/22 11:00 O2 Del Method Room Air 12/03/22 11:00 BMI result Body Mass Index 39.1 DS: Data Data Completed and Pending Labs on day of discharge: Laboratory Results - last 24 hr 12/02/22 12/02/22 12/03/22 16:12 19:55 06:08 WBC 9.8 RBC 4.04 L Hgb 11.6 L Hct 36.0 L MCV 89.1 MCH 28.7 MCHC 32.2 RDW 13.5 Plt Count 96 L MPV 13.5 H Immature Gran % (Auto) 0.5 H Neut % (Auto) 69.6 Lymph % (Auto) 20.7 [place] % (Auto) 8.5 Eos % (Auto) 0.2 Baso % (Auto) 0.5 Lymph # (Auto) 2.0 [place] # (Auto) 0.8 Eos # (Auto) 0.0 Baso # (Auto) 0.1 Abs Immat Gran (auto) 0.05 H Absolute Neuts (auto) 6.8 Absolute Nucleated RBC 0.000 Nucleated RBC % (auto) 0.0 Sodium Potassium Chloride Carbon Dioxide Anion Gap BUN Creatinine Estim Creat Clear Calc Estimated GFR POC Glucose 189 H 304 H Fasting Glucose Calcium Total Bilirubin AST ALT Alkaline Phosphatase Total Protein Albumin 12/03/22 12/03/22 12/03/22 06:08 07:44 11:31 WBC RBC Hgb Hct MCV MCH MCHC RDW Plt Count MPV Immature Gran % (Auto) Neut % (Auto) Lymph % (Auto) [place] % (Auto) Eos % (Auto) Baso % (Auto) Lymph # (Auto) [place] # (Auto) Eos # (Auto) Baso # (Auto) Abs Immat Gran (auto) Absolute Neuts (auto) Absolute Nucleated RBC Nucleated RBC % (auto) Sodium 142 Potassium 4.3 Chloride 107 Carbon Dioxide 26 Anion Gap 13 BUN 10 Creatinine 0.80 Estim Creat Clear Calc 82.2 Estimated GFR > 60 POC Glucose 159 H 184 H Fasting Glucose 177 H Calcium 8.7 Total Bilirubin 0.8 AST 53 H ALT 53 H Alkaline Phosphatase 99 Total Protein 6.1 L Albumin 3.4 L Preliminary micro results at discharge 12/01/22 10:20 Blood Culture - Preliminary Blood - Venous No growth after 48 hours. 12/01/22 10:20 Blood Culture - Preliminary Blood - Venous No growth after 48 hours. Discharge Plan Discharge Anticipated Discharge Date/Time: 12/03/22 13:59 Patient Disposition: Home, Self-Care Discharge Diagnosis: Syncope Referrals: Faraz Bethea MD [Primary Care Provider] - 1 Week Discharge Medications: Continued insulin glargine [Lantus U-100 Insulin] 100 unit/mL solution 55 unit subcut BEDTIME Jardiance 10 mg tablet 10 mg PO DAILY metformin 1,000 mg tablet 1,000 mg PO BID (DME) insulin syringe-needle U-100 [BD Insulin Syringe Ultra-Fine] 1 mL 31 gauge x 5/16 syringe See Rx Instructions .ROUTE .MEDSUPPLY Qty: 10 Rx Instructions: As directed lisinopril 20 mg tablet 20 mg PO DAILY levothyroxine [Synthroid] 75 mcg tablet 75 mcg PO DAILY@0600 pravastatin 10 mg tablet 10 mg PO BEDTIME aspirin [Adult Low Dose Aspirin] 81 mg tablet,delayed release (DR/EC) 81 mg PO BEDTIME Discharge Orders: Discharge Order (Routine); Ordered 12/03/22 Ordered By: Kehinde Stahl Diet: Advance to usual diet Activity on Discharge: As tolerated Stand Alone Forms: Patient Portal Discharge page Care Plan Goals: Resume all pre-hospital medications Health Concerns: Follow-up with your PCP in 2 weeks Plan of Treatment: Return for recurrent symptoms Assessment: See discharge
--- NOTE | 2022-12-03 14:07 | MHC.CM.PN ---
PT WILL DC HOME TODAY WITH NO SERVICES VIA PRIVATE TRANSPORT
== END 2022-12-03 15:20 | disposition home or self-care (01) | DRG 312 ==
LOC: HO.ED 15:40 → HO.EDOVER 16:57 → HO.IMC 19:14
PROVIDERS: Registered Nurse Emergency; Admitting Provider Hospitalist; Emergency Provider Emergency Medicine; PCP Family Medicine; Visit Provider Hospitalist
DX: R55 Syncope and collapse (principal); E87.20 Acidosis, unspecified; E11.9 Type 2 diabetes mellitus without complications; I10 Essential (primary) hypertension; E03.9 Hypothyroidism, unspecified; Z86.73 Personal history of transient ischemic attack (TIA), and cerebral infarction without residual deficits; Z79.4 Long term (current) use of insulin; Z79.84 Long term (current) use of oral hypoglycemic drugs; Z79.890 Hormone replacement therapy; Z79.899 Other long term (current) drug therapy
CPT/HCPCS: 36415; 70450; 71045; 72125; 74177; 80048; 80053; 80076; 81001; 82803; 82947; 83605; 83690; 83735; 84439; 84443; 84484; 85025; 87040; 87086; 93005; 99285; J1200; J1650; J2405; J2543; Q9967

== ENCOUNTER 2023-01-03 10:20 | Outpatient (REF) | payer MEDICARE, SELFPAY ==
[2023-01-03 10:49] LABS: MANUAL DIFF FLAG NO
[2023-01-03 10:56] LABS: Basophils Absolute Auto 0.1 X10*3/uL (0.0-0.2); Basophils Percent Auto 1.8 % (0-2); Eosinophils Absolute Auto 0.1 X10*3/uL (0.0-0.4); Hematocrit 43.8 % (37.0-47.0); Imm Gran Abs Auto 0.02 X10*3/uL (0.00-0.03); Imm Gran Pct Auto 0.3 % (0.0-0.4); Lymphocytes Absolute Auto 1.9 X10*3/uL (1.2-4.9); Lymphocytes Percent Auto 28.1 % (20-40); Mean Corpuscular Hemoglobin 27.8 pg (27.0-33.0); Mean Corpuscular Volume 86.9 fL (80.0-98.0); Mean Platelet Volume 12.9 fL (9.4-12.3); Monocytes Absolute Auto 0.5 X10*3/uL (0.1-1.2); Monocytes Percent Auto 7.8 % (2-11); Platelet Count 190 X10*3/uL (160-400); Red Blood Count 5.04 X10*6/uL (4.20-5.50); Red Cell Distribution Width 13.6 % (11.0-16.0); White Blood Count 6.7 X10*3/uL (4.8-10.8)
[2023-01-03 12:21] LABS: Glucose Fasting 192 mg/dL (60-99)
[2023-01-03 12:44] LABS: Free T4 (Free Thyroxine) 1.08 ng/dL (0.71-1.85); Thyroid Stimulating Hormone 1.79 uIU/mL (0.32-4.0)
[2023-01-03 15:04] LABS: Estimated Average Glucose 189 mg/dL; Hemoglobin A1c % 8.2 %
== END 2023-01-03 10:21 | disposition home or self-care (01) ==
LOC: HO.10HDL 10:20
PROVIDERS: Visit Provider Family Medicine
DX: E11.9 Type 2 diabetes mellitus without complications (principal); E03.9 Hypothyroidism, unspecified; D69.6 Thrombocytopenia, unspecified
CPT/HCPCS: 36415; 82947; 83036; 84439; 84443; 85025

== ENCOUNTER 2023-02-27 12:45 | Outpatient (REF) | payer MEDICARE, SELFPAY ==
--- NOTE | ~2023-02-27 | MM_ITS ---
EXAMINATION: MM SCREENING DIGITAL BREAST TOMOSYNTHESIS, BILATERAL CLINICAL INFORMATION: Screening. Asymptomatic. Personal history right breast cancer status post lumpectomy and radiation, 2001 COMPARISON: Mammography: 02/23/2022, 02/21/2021, 08/18/2020, 02/17/2020, 02/05/2020 (BI-RADS 0), 09/30/2018, 09/28/2017; left breast ultrasound 02/17/2020 TECHNIQUE: Digital breast tomosynthesis is performed in both the craniocaudal and mediolateral oblique views along with computer-aided detection (CAD). Synthesized 2D images are generated from the tomosynthesis. FINDINGS: There are scattered areas of fibroglandular density (ACR BI-RADS breast composition Category b). Stable post treatment changes in the right breast. The right breast is slightly smaller than on the left breast, unchanged. Minor left retroareolar duct ectasia is unchanged. There are dystrophic calcifications predominantly in the anterior right breast, and scattered dermal calcifications. There are no suspicious masses, suspicious grouped calcifications, or areas of architectural distortion. The parenchymal pattern is stable from prior exams. MM/MM tomosynthesis screening BI IMPRESSION: No mammographic evidence of malignancy. Stable benign findings. ASSESSMENT: BI-RADS BI-RADS 2 - Benign Findings RECOMMENDATION: Routine annual mammography screening. 1 year F/U This examination should not preclude the clinical evaluation of a suspicious palpable abnormality. This patient's information was entered into a reminder system with a target due date for their next mammogram.
== END 2023-02-27 12:46 | disposition home or self-care (01) ==
LOC: HO.MAMMO 12:45
PROVIDERS: Visit Provider Family Medicine
DX: Z12.31 Encounter for screening mammogram for malignant neoplasm of breast (principal)
CPT/HCPCS: 77063; 77067

== ENCOUNTER → 2023-02-27 13:00 | Outpatient (BNV) | payer MEDICARE, SELFPAY | PROVIDERS: Visit Provider Radiology Diagnostic Radiology | DX: Z12.31 Encounter for screening mammogram for malignant neoplasm of breast (principal) | CPT/HCPCS: 77063; 77067 ==

== ENCOUNTER 2023-05-14 09:28 | Outpatient (REF) | payer MEDICARE, SELFPAY ==
--- NOTE | ~2023-05-14 | XR_ITS ---
EXAMINATION: XR LUMBOSACRAL SPINE CLINICAL INFORMATION: Low back pain, left-sided sciatica. COMPARISON: None available. TECHNIQUE: Three views of the lumbosacral spine. FINDINGS: Surgical clips in the right upper quadrant of the abdomen. Slight leftward curvature of the lumbar spine. Degenerative changes with sclerosis in the bilateral sacroiliac joints, right greater than left. Advanced facet arthritis in the [id number] lumbar spine. A 9 mm rounded density/sclerotic focus overlies the right supra-acetabular region. Degenerative changes in the imaged lower thoracic spine. Bones are diffusely demineralized. Grade 1 retrolisthesis of L1 on L2. Grade 1 retrolisthesis of L2 on L3. Advanced multilevel degenerative changes in the lumbar spine with loss of disc space height most notable at L4-L5 and L5-S1. XR/XR lumbar spine 2-3V IMPRESSION: 1. Advanced multilevel degenerative changes in the lumbar spine. 2. A 9 mm rounded density/sclerotic focus overlies the right supra-acetabular region possibly related to overlying bowel versus bony or soft tissue lesion. Dedicated views of the pelvis and right hip recommended for further evaluation.
[2023-05-14 10:34] LABS: MANUAL DIFF FLAG NO
[2023-05-14 10:48] LABS: Basophils Absolute Auto 0.1 X10*3/uL (0.0-0.2); Basophils Percent Auto 1.4 % (0-2); Eosinophils Absolute Auto 0.2 X10*3/uL (0.0-0.4); Eosinophils Percent Auto 2.1 % (0-4); Hematocrit 40.5 % (37.0-47.0); Imm Gran Abs Auto 0.02 X10*3/uL (0.00-0.03); Imm Gran Pct Auto 0.3 % (0.0-0.4); Lymphocytes Absolute Auto 1.9 X10*3/uL (1.2-4.9); Lymphocytes Percent Auto 27.4 % (20-40); Mean Corpuscular HGB Conc 32.1 g/dl (31.0-35.0); Mean Corpuscular Hemoglobin 27.9 pg (27.0-33.0); Mean Corpuscular Volume 86.9 fL (80.0-98.0); Monocytes Absolute Auto 0.5 X10*3/uL (0.1-1.2); Monocytes Percent Auto 7.7 % (2-11); Neutrophils Absolute Auto 4.3 x10*3/uL (2.0-8.3); Neutrophils Percent Auto 61.1 % (45-73); Platelet Count 162 X10*3/uL (160-400); Red Blood Count 4.66 X10*6/uL (4.20-5.50); Red Cell Distribution Width 13.3 % (11.0-16.0)
[2023-05-14 11:04] LABS: Estimated Average Glucose 223 mg/dL; Hemoglobin A1c % 9.4 % (<6.0)
[2023-05-14 11:58] LABS: Alanine Aminotransferase 26 U/L (0-31); Anion Gap 12 (12-20); Aspartate Amino Transferase 23 U/L (5-31); Blood Urea Nitrogen 17 mg/dL (9-16); Carbon Dioxide 28 mmol/L (22-29); Chloride 104 mmol/L (96-108); Estimated Glomerular Filt Rate > 60; Glucose Fasting 165 mg/dL (60-99); Potassium 4.5 mmol/L (3.3-5.1); Sodium 139 mmol/L (135-145)
== END 2023-05-14 09:29 | disposition home or self-care (01) ==
LOC: HO.HMGCX 09:28
PROVIDERS: PCP Family Medicine; Visit Provider Family Medicine
DX: M54.32 Sciatica, left side (principal); I10 Essential (primary) hypertension; K75.81 Nonalcoholic steatohepatitis (NASH); E11.9 Type 2 diabetes mellitus without complications; D69.6 Thrombocytopenia, unspecified
CPT/HCPCS: 36415; 72100; 80051; 82565; 82947; 83036; 84450; 84460; 84520; 85025

== ENCOUNTER 2023-06-26 14:03 | Outpatient (REF) | payer MEDICARE, SELFPAY | END 2023-06-26 14:04 | disposition home or self-care (01) | LOC: HO.HMGCX 14:03 | PROVIDERS: PCP Family Medicine; Visit Provider Family Medicine | DX: M25.551 Pain in right hip (principal); M19.90 Unspecified osteoarthritis, unspecified site | CPT/HCPCS: 73502 ==

== ENCOUNTER 2023-12-21 09:23 | Outpatient (REF) | payer MEDICARE, SELFPAY ==
[2023-12-21 10:13] LABS: Estimated Average Glucose 209 mg/dL; Hemoglobin A1c % 8.9 % (<6.0)
[2023-12-21 10:24] LABS: Alanine Aminotransferase 31 U/L (0-31); Alkaline Phosphatase 87 U/L (39-117); Anion Gap 13 (12-20); Aspartate Amino Transferase 25 U/L (5-31); Bilirubin Direct < 0.2 mg/dL (0.0-0.5); Bilirubin Total 0.2 mg/dL (0.0-1.0); Carbon Dioxide 27 mmol/L (22-29); Chloride 107 mmol/L (96-108); Estimated Glomerular Filt Rate > 60; Glucose Fasting 157 mg/dL (60-99); Potassium 4.4 mmol/L (3.3-5.1); Sodium 143 mmol/L (135-145); Total Protein 7.4 g/dL (6.5-8.0)
[2023-12-21 10:30] LABS: Creatinine Urine 69.26 mg/dL; Microalbum/Creatinine Ratio Ur 17.3 ug/mg cr (<30)
== END 2023-12-21 09:24 | disposition home or self-care (01) ==
LOC: HO.10HDL 09:23
PROVIDERS: Visit Provider Family Medicine
DX: K75.81 Nonalcoholic steatohepatitis (NASH) (principal); I10 Essential (primary) hypertension; E11.9 Type 2 diabetes mellitus without complications; E78.00 Pure hypercholesterolemia, unspecified; Z79.899 Other long term (current) drug therapy
CPT/HCPCS: 36415; 80051; 80076; 82043; 82550; 82565; 82570; 82947; 83036

== ENCOUNTER 2024-03-03 09:34 | Outpatient (REF) | payer MEDICARE, SELFPAY ==
--- NOTE | ~2024-03-03 | MM_ITS ---
EXAMINATION: MM SCREENING DIGITAL BREAST TOMOSYNTHESIS, BILATERAL CLINICAL INFORMATION: Screening. Asymptomatic. COMPARISON: Mammography: Comparison is made with available priors TECHNIQUE: Digital breast mammography with tomosynthesis is performed in both the craniocaudal and mediolateral oblique views along with computer-aided detection (CAD). FINDINGS: There are scattered areas of fibroglandular density (ACR BI-RADS breast composition Category b). Status post right lumpectomy. There are no significant masses, abnormal calcifications, or other abnormalities. MM/MM tomosynthesis screening BI IMPRESSION: No mammographic evidence of malignancy. ASSESSMENT: BI-RADS BI-RADS 2 - Benign Findings RECOMMENDATION: Routine annual mammography screening. 1 year F/U This examination should not preclude the clinical evaluation of a suspicious palpable abnormality. This patient's information was entered into a reminder system with a target due date for their next mammogram. Electronically signed by: Pattie Dumas DO 03/17/2024 05:52 PM EDT
== END 2024-03-03 09:35 | disposition home or self-care (01) ==
LOC: HO.MAMMO 09:34
PROVIDERS: PCP Family Medicine; Visit Provider Family Medicine
DX: Z12.31 Encounter for screening mammogram for malignant neoplasm of breast (principal)
CPT/HCPCS: 77063; 77067

== ENCOUNTER → 2024-03-03 09:45 | Outpatient (BNV) | payer MEDICARE, SELFPAY | PROVIDERS: PCP Family Medicine; Visit Provider Internal Medicine | DX: Z12.31 Encounter for screening mammogram for malignant neoplasm of breast (principal) | CPT/HCPCS: 77063; 77067 ==

== ENCOUNTER 2024-03-21 10:09 | Outpatient (REF) | payer MEDICARE, SELFPAY ==
[2024-03-21 11:24] LABS: Estimated Average Glucose 237 mg/dL; Hemoglobin A1c % 9.9 % (<6.0)
[2024-03-21 11:49] LABS: Glucose Fasting 173 mg/dL (60-99)
[2024-03-21 12:03] LABS: Free T4 (Free Thyroxine) 1.02 ng/dL (0.71-1.85); Thyroid Stimulating Hormone 3.66 uIU/mL (0.32-4.0)
== END 2024-03-21 10:10 | disposition home or self-care (01) ==
LOC: HO.LAB 10:09
PROVIDERS: PCP Family Medicine; Visit Provider Family Medicine
DX: E11.9 Type 2 diabetes mellitus without complications (principal); E03.9 Hypothyroidism, unspecified
CPT/HCPCS: 36415; 82947; 83036; 84439; 84443

== ENCOUNTER 2024-10-27 10:40 | Outpatient (REF) | payer MEDICARE, SELFPAY ==
[2024-10-27 13:34] LABS: Estimated Average Glucose 237 mg/dL; Hemoglobin A1C 315.3813 umol/L; Hemoglobin A1c % 9.9 % (<6.0); Total Hemoglobin (HGBA1C) 3730.2213 umol/L
[2024-10-27 13:58] LABS: Alanine Aminotransferase 24 U/L (0-31); Anion Gap 14 (12-20); Aspartate Amino Transferase 25 U/L (5-31); Blood Urea Nitrogen 15 mg/dL (9-16); Carbon Dioxide 26 mmol/L (22-29); Chloride 105 mmol/L (96-108); Cholesterol 218 mg/dL (<200); Estimated Glomerular Filt Rate > 60; Glucose Fasting 156 mg/dL (60-99); Potassium 4.4 mmol/L (3.3-5.1); Sodium 141 mmol/L (135-145); Triglycerides 157 mg/dL (<150)
[2024-10-27 14:08] LABS: Free T4 (Free Thyroxine) 1.05 ng/dL (0.71-1.85); HDL Cholesterol 68 mg/dL (>40); LDL Cholesterol Calculated 119 mg/dL (<100); Thyroid Stimulating Hormone 3.07 uIU/mL (0.32-4.0)
== END 2024-10-27 10:41 | disposition home or self-care (01) ==
LOC: HO.10HDL 10:40
PROVIDERS: Visit Provider Family Medicine
DX: E03.9 Hypothyroidism, unspecified (principal); E11.9 Type 2 diabetes mellitus without complications; E78.00 Pure hypercholesterolemia, unspecified
CPT/HCPCS: 36415; 80051; 80061; 82550; 82565; 82947; 83036; 84439; 84443; 84450; 84460; 84520

== ENCOUNTER 2024-11-07 04:55 | Observation (INO) | payer MEDICARE, SELFPAY ==
[2024-11-07] VITALS (11 sets, daily range): BP systolic 110–157; BP diastolic 59–82; PULSE 63–96; RESP 12–18; TEMP 36.1–36.8; O2SAT 94–97; BMI 37.2; BMI 37.1
--- NOTE | 2024-11-07 | ECG_ITS ---
Test Reason : SYNCOPE Blood Pressure : */* mmHG Vent. Rate : 87 BPM Atrial Rate : 87 BPM P-R Int : 160 ms QRS Dur : 66 ms QT Int : 372 ms P-R-T Axes : 25 29 42 degrees QTcB Int : 447 ms Normal sinus rhythm Anterior infarct , age undetermined Abnormal ECG When compared with ECG of 01-Dec-2022 06:19, Anterior infarct is now Present Referred By: Generic ED Physician Electronically Signed By: ANICETO MORAN MD
--- NOTE | ~2024-11-07 | CT_ITS ---
EXAMINATION: CT ABDOMEN PELVIS WITH IV CONTRAST HISTORY: left sided abd pain COMPARISON: Comparison is made with the prior examination dated 12/01/2022. TECHNIQUE: CT scan of the abdomen and pelvis was performed following administration of 85 mL Omnipaque 350 using standard departmental protocol. Coronal and sagittal reformatted images were generated and reviewed. Oral contrast material was not administered at the request of the referring physician. This CT exam was performed with one or more of the following dose reduction techniques: automated exposure control, adjustment of the mA and/or kV according to patient size, use of iterative reconstruction technique. DLP: 885 mGy-cm FINDINGS: LOWER CHEST: The visualized lung bases are clear. There is no pleural effusion. CARDIOVASCULATURE: The heart is normal in size. There is no pericardial effusion. LIVER: The liver again demonstrates a nodular contour, consistent with cirrhosis. No liver mass is identified. The hepatic and portal veins are patent. GALLBLADDER / BILE DUCTS: The gallbladder is surgically absent. There is no intra or extrahepatic biliary ductal dilatation. SPLEEN: The spleen is top normal in size. No focal splenic lesion is identified. PANCREAS: The pancreas is unremarkable in appearance. ADRENAL GLANDS: Within normal limits. KIDNEYS/RETROPERITONEUM: There is bilateral renal scarring. No renal calculi are identified. There is no hydronephrosis. No renal masses are identified. LYMPH NODES: No abdominal or pelvic lymphadenopathy. VASCULATURE: The abdominal aorta demonstrates atherosclerotic calcification, but is normal in caliber. MESENTERY/PERITONEUM: There is a small amount of fluid around the spleen and in the right lower quadrant. No masses. There is no free intraperitoneal gas. STOMACH: The stomach is collapsed, limiting evaluation. SMALL BOWEL: There are numerous abnormal thick-walled loops of jejunum in the left upper quadrant. There is no significant bowel dilatation. There is engorgement of the small bowel mesentery. The ileum is unremarkable. COLON: There is a moderate to large amount of stool throughout the colon. There is diverticulosis of the descending and sigmoid colon, without evidence of diverticulitis.. APPENDIX: Normal. URINARY BLADDER/PELVIC ORGANS: The urinary bladder is unremarkable. The uterus is unremarkable. BONES / SOFT TISSUES: There is severe degenerative disc disease of the spine. CT/CT abdomen pelvis w IV con IMPRESSION: 1. Diffuse jejunal wall thickening with engorgement of the mesentery and fluid in the left upper quadrant. Findings are consistent with enteritis which could be inflammatory, infectious, or ischemic in nature. 2. Cirrhosis of the liver. Electronically signed by: Abhay Diaz MD 11/07/2024 09:37 AM EDT
--- NOTE | 2024-11-07 05:05 | MHC.EDTECH ---
assumed care of pt
--- NOTE | 2024-11-07 05:08 | MHC.EDTECH ---
obtained VS and placed pt on underground utility locator, RN obtained EKG
--- NOTE | 2024-11-07 05:25 | PC.NURSE ---
Pt settled onto stretcher, cardiac/vascular sonographer applied, EKG done and given to physician.
--- NOTE | 2024-11-07 05:38 | ED.SYNCOPE ---
HPI - Syncope General Chief Complaint: Syncope Stated Complaint: Syncope, nausea, dizziness Time Seen by Provider: 11/07/24 05:37 Source: patient Mode of arrival: EMS Limitations: no limitations History of Present Illness ED Provider: HPI narrative: Patient is 74 years old with history of diabetes hypotension hypothyroidism CVA at the age of 37 , status post cholecystectomy comes here for episode of palpitation with nausea and near-syncope episode patient's woke up from sleep at 03:00 with rapid heartbeats lasted for 10 minutes with severe nausea and diaphoresis when EMS came and she sat up she felt like passing out and was very dizzy patient has had similar episode in 2022 at that time Holter monitor was placed but she did not have any episode during the time when Holter was placed patient's does go away in a mild cramping on the left upper abdomen and severe nauseated on arrival no fever no chills no urinary symptoms patient was doing well day before no chest pain no diagnose as of atrial fibrillation or flutter Related Data Home Medications ?Medication ?Instructions ?Recorded ?Confirmed aspirin 81 mg tablet,delayed 81 mg PO BEDTIME 03/09/22 12/01/22 release (Adult Low Dose Aspirin) insulin syringe-needle U-100 1 mL #10 ea 03/09/22 31 gauge x 5/16 (BD Insulin Syringe Ultra-Fine) levothyroxine 75 mcg tablet 75 mcg PO DAILY@0600 03/09/22 12/01/22 (Synthroid) lisinopril 20 mg tablet 20 mg PO DAILY 03/09/22 12/01/22 metformin 1,000 mg tablet 1,000 mg PO BID 03/09/22 12/01/22 pravastatin 10 mg tablet 10 mg PO BEDTIME 03/09/22 12/01/22 empagliflozin 10 mg tablet 10 mg PO DAILY 12/01/22 12/01/22 (Jardiance) insulin glargine 100 unit/mL 55 unit subcut BEDTIME 12/01/22 12/01/22 subcutaneous solution (Lantus U-100 Insulin) Allergies Allergy/AdvReac Type Severity Reaction Status Date / Time shellfish derived Allergy Severe Anaphylaxis, Verified 11/07/24 05:10 Hives, Shortness of Breath SILK TAPE Allergy Mild RASH Uncoded 11/07/24 05:10 Review of Systems Review of Systems: Yes all other systems are reviewed and are negative PMFSH Past Medical History Medical History Hypertension Hypothyroidism Diabetes Surgical History H/O right knee surgery Social History Social History Household Members: Spouse Housing: House Do you presently have visiting nurse or other home services: No Patient Tobacco Use Status: Never used Tobacco Smoked in Last 30 Days: No Use of substances other than those prescribed or required for medical reasons: No Advance Directives: No Advance Directives Information Provided: Yes Do you have a plan to hurt others: No Plan service: No Current occupational status: retired Physical Exam Vital Signs: Vital Signs: Last Vital Signs Pulse 84 11/07/24 05:06 Resp 16 11/07/24 05:06 BP 134/70 11/07/24 05:06 Pulse Ox 96 11/07/24 05:23 O2 Del Method Room Air 11/07/24 05:23 BMI result Body Mass Index 37.2 Appearance: Alert. Oriented X3. In moderate distress dizzy diaphoretic no chest pain or palpitation Eyes: PERRLA, No Nystagmus ENT: Pharynx normal. Oral Mucosa moist Neck: Normal inspection. Neck supple. CVS: Normal heart rate and rhythm. Pulses normal. Respiratory: No respiratory distress. Equal air entry bilateral, no wheezing/rales/rhonchi Abdomen: Soft and nontender. Bowel sounds are present, no mass palpable, no CVA tenderness Skin: Skin warm and dry. Normal skin color. Normal skin turgor. Extremities: No lower extremity edema. No calf tenderness Neuro: Oriented X 3. No motor deficit. No sensory deficit.No cerebellar signs , cranial nerves II-XII intact Medications Administered Generic Name Dose Route Start Last Admin Trade Name Freq PRN Reason Stop Dose Admin Sodium Chloride 1,000 mls @ 999 mls/hr 11/07/24 05:46 11/07/24 05:53 Ns IV 11/07/24 06:46 999 mls/hr .Q1H1M ONE Administration Discontinued Medications Generic Name Dose Route Start Last Admin Trade Name Freq PRN Reason Stop Dose Admin Prochlorperazine Edisylate 10 mg 11/07/24 05:49 11/07/24 05:53 Prochlorperazine Edisylate 10 Mg/2 Ml Vial IVPUSH 11/07/24 05:50 10 mg ONCE ONE Administration Medical Decision Making Medical Decision Making [facility] Narrative: Patient with palpitation with near-syncope episode 2nd episode in last 3 years previous episode was in 2022 , previous evaluation was negative for any significant cardiac arrhythmias at this time patient had episode which woke her up from the sleep concern about atrial fibrillation/flutter/ventricular arrhythmia. Patient is signed out Dr. East pending further evaluation Differential Diagnosis Differential Diagnoses: The differential diagnosis associated with the presentation includes Atrial flutter/atrial fibrillation/SVT/V-tach Admission/Observation Consideration of admission/observation: Escalation of care including admission/observation considered Lab Data [facility] Lab Attestation statement: I reviewed the patient's lab results. 11/07/24 05:30 11/07/24 05:30 Labs: Lab Results 11/07/24 Range/Units 05:30 WBC 14.2 H (4.8-10.8) X10*3/uL RBC 5.80 H D (4.20-5.50) X10*6/uL Hgb 16.5 H D (12.0-16.0) g/dl Hct 49.2 H D (37.0-47.0) % MCV 84.8 (80.0-98.0) fL MCH 28.4 (27.0-33.0) pg MCHC 33.5 (31.0-35.0) g/dl RDW 13.2 (11.0-16.0) % Plt Count 239 D (160-400) X10*3/uL Immature Gran % (Auto) 0.4 (0.0-0.4) % Neut % (Auto) 75.9 H (45-73) % Lymph % (Auto) 18.4 L (20-40) % [place] % (Auto) 3.9 (2-11) % Eos % (Auto) 0.8 (0-4) % Baso % (Auto) 0.6 (0-2) % Lymph # (Auto) 2.6 (1.2-4.9) X10*3/uL [place] # (Auto) 0.6 (0.1-1.2) X10*3/uL Eos # (Auto) 0.1 (0.0-0.4) X10*3/uL Baso # (Auto) 0.1 (0.0-0.2) X10*3/uL Abs Immat Gran (auto) 0.05 H (0.00-0.03) X10*3/uL Absolute Neuts (auto) 10.8 H (2.0-8.3) x10*3/uL Absolute Nucleated RBC 0.000 (0.0-0.012) X10*3/uL Nucleated RBC % (auto) 0.0 (0.0-0.2) /100WBC Smear Tech's Comments VERIFIED Sodium 143 (135-145) mmol/L Potassium 3.6 (3.3-5.1) mmol/L Chloride 112 H (96-108) mmol/L Carbon Dioxide 17 L (22-29) mmol/L Anion Gap 18 (12-20) BUN 15 (9-16) mg/dL Creatinine 0.77 (0.5-1.4) mg/dL Estim Creat Clear Calc 83.4 Estimated GFR > 60 Random Glucose 267 H (60-115) mg/dL Calcium 8.3 L (8.4-10.2) mg/dL Troponin I High Sens 18.2 H (<3.5-17.0) ng/L Independent Interpretation I performed an independent interpretation of an: EKG Interpretation: Normal sinus rhythm heart rate 87 beats per minute normal interval normal axis no acute ST-T no acute ischemia Discharge Plan Discharge Clinical Impression: Heart palpitations, Near syncope Patient Disposition: Still a Patient Prescriptions: No Action insulin glargine [Lantus U-100 Insulin] 100 unit/mL solution 55 unit subcut BEDTIME Jardiance 10 mg tablet 10 mg PO DAILY metformin 1,000 mg tablet 1,000 mg PO BID (DME) insulin syringe-needle U-100 [BD Insulin Syringe Ultra-Fine] 1 mL 31 gauge x 5/16 syringe See Rx Instructions .ROUTE .MEDSUPPLY Qty: 10 Rx Instructions: As directed lisinopril 20 mg tablet 20 mg PO DAILY levothyroxine [Synthroid] 75 mcg tablet 75 mcg PO DAILY@0600 pravastatin 10 mg tablet 10 mg PO BEDTIME aspirin [Adult Low Dose Aspirin] 81 mg tablet,delayed release (DR/EC) 81 mg PO BEDTIME Print Language: Wolof
[2024-11-07 05:52] LABS: Basophils Absolute Auto 0.1 X10*3/uL (0.0-0.2); Basophils Percent Auto 0.6 % (0-2); Eosinophils Absolute Auto 0.1 X10*3/uL (0.0-0.4); Eosinophils Percent Auto 0.8 % (0-4); Hematocrit 49.2 % (37.0-47.0); Hemoglobin 16.5 g/dl (12.0-16.0); Imm Gran Abs Auto 0.05 X10*3/uL (0.00-0.03); Imm Gran Pct Auto 0.4 % (0.0-0.4); Lymphocytes Absolute Auto 2.6 X10*3/uL (1.2-4.9); Lymphocytes Percent Auto 18.4 % (20-40); MANUAL DIFF FLAG SCAN; Mean Corpuscular HGB Conc 33.5 g/dl (31.0-35.0); Mean Corpuscular Hemoglobin 28.4 pg (27.0-33.0); Mean Corpuscular Volume 84.8 fL (80.0-98.0); Monocytes Absolute Auto 0.6 X10*3/uL (0.1-1.2); Monocytes Percent Auto 3.9 % (2-11); Neutrophils Absolute Auto 10.8 x10*3/uL (2.0-8.3); Neutrophils Percent Auto 75.9 % (45-73); PLT CLUMP 1; Red Cell Distribution Width 13.2 % (11.0-16.0); SCAN SMEAR FLAG 1
[2024-11-07] MEDS: Prochlorperazine Edisylate 10 MG/2 ML VIAL IVPUSH (05:53)
[2024-11-07] MEDS: 0.9 % Sodium Chloride 1,000 ML 999 ML IV (05:53)
[2024-11-07 06:00] LABS: Anion Gap 18 (12-20); Blood Urea Nitrogen 15 mg/dL (9-16); Calcium 8.3 mg/dL (8.4-10.2); Carbon Dioxide 17 mmol/L (22-29); Chloride 112 mmol/L (96-108); Creatinine Clr Calc Pharmacy 83.4; Estimated Glomerular Filt Rate > 60; Glucose Random 267 mg/dL (60-115); Potassium 3.6 mmol/L (3.3-5.1); Sodium 143 mmol/L (135-145)
[2024-11-07 06:08] LABS: Platelet Count 239 X10*3/uL (160-400); White Blood Count 14.2 X10*3/uL (4.8-10.8)
[2024-11-07 06:09] LABS: SLIDE REVIEW VERIFIED; Troponin-I High Sensitivity 18.2 ng/L (<3.5-17.0)
--- NOTE | 2024-11-07 06:14 | PC.NURSE ---
Pt placed on bedpan, heart rate noted to go down into 30s when pt was moving her bowels. Pt also vomited a small amount. Unable to perform orthostatic vitals at this time due to patient being unable to stand. Pt states she feels faint while lying on stretcher.
[2024-11-07 06:41] LABS: Alanine Aminotransferase 29 U/L (0-31); Albumin Level 3.4 g/dL (3.5-5.0); Alkaline Phosphatase 107 U/L (39-117); Aspartate Amino Transferase 33 U/L (5-31); Bilirubin Direct 0.1 mg/dL (0.0-0.5); Bilirubin Total 0.4 mg/dL (0.0-1.0); Lipase 32 U/L (8-78); Total Protein 6.5 g/dL (6.5-8.0)
--- NOTE | 2024-11-07 06:50 | MHC.EDTECH ---
per nurse pt is unable to complete a set of orthostatic VS and they are on hold until pt is capable
[2024-11-07 06:59] LABS: Prothrombin Time 11.7 SEC (10.9-12.4)
[2024-11-07 07:02] LABS: Partial Thromboplastin Time 29.8 SEC (26.0-36.8)
--- NOTE | 2024-11-07 08:42 | P.HPHOSP_ITS ---
History of Present Illness Date of Service: 11/07/24 Attending physician on admission: Davis Bradshaw Chief Complaint: Lightheadedness, N/V Pt is a 74-year-old female with a PMH significant for?insulin-dependent type 2 diabetes, CVA at age 37 , HTN, HLD, hypothyroidism, and hx of cholecystectomy who presents to the ED with lightheadedness, dizziness, nausea, and dry heaving episode this morning. Pt reports she was awoken from sleep at 03:00 with left upper abdominal pain, nausea, dry heaving, and diaphoresis. Also experienced palpitations but was unable to capture heart rate on her watch. Pt checked her sugars which were in the 170s. No LOC or fall. Pt did not want to stand up or attempt to move due to fear of syncopizing, so eventually called EMS to bring her to hospital for further evaluation. Pt had similar episode in November of 2022 where she was admitted to the hospital for observation. Workup at that time was negative and symptoms were attributed to likely vasovagal episode. Pt denies chest pain/pressure. No diarrhea. No SOB, difficulty breathing, or cough. No headache or acute vision changes. In the ED pt reports having a formed bowel movement. Pt reports has been eating and drinking normally prior to symptom onset. Pt also states there has been a question in the past of whether she has a bicuspid aortic valve. Undergoes regular echocardiograms every 5 years that have apparently been negative. In the ED pt was mildly hypertensive at 145/71, vitals otherwise stable and WNL. Afebrile, satting at 97% on RA. Labs were significant for leukocytosis of 14.2, increased H&H of 16.5/49.2, random glucose 267, troponins flat at 18.2 and 19.0. EKG demonstrated normal sinus rhythm without evidence of significant ST elevations or depressions. Pt was treated in the ED with IVF and Compazine. Pt is admitted to the hospital under observation for treatment and further evaluation of near syncopal episode. Review of Systems 2 Review of Systems: Negative except for that which is stated in the HPI. [facility] Medical History Hypertension Hypothyroidism Diabetes Surgical History H/O right knee surgery Social History Household Members: Spouse Housing: House Do you presently have visiting nurse or other home services: No Patient Tobacco Use Status: Never used Tobacco Smoked in Last 30 Days: No Use of substances other than those prescribed or required for medical reasons: No Do you feel safe in your current relationship?: Yes Advance Directives: No Advance Directives Information Provided: Yes Do you have a plan to hurt others: No Plan Recently lost weight without trying: No Nutrition Risks: No Nutritional Risk Patient : No : No Poor oral hygiene: No service: No Current occupational status: retired Meds Allergies Allergy/AdvReac Type Severity Reaction Status Date / Time shellfish derived Allergy Severe Anaphylaxis, Verified 11/07/24 05:10 Hives, Shortness of Breath SILK TAPE Allergy Mild RASH Uncoded 11/07/24 05:10 Home Medications ?Medication ?Instructions ?Recorded ?Confirmed ?Last Taken ?Type aspirin 81 mg tablet,delayed 81 mg PO BEDTIME 03/09/22 11/07/24 11/06/24 History release (Adult Low Dose Aspirin) insulin syringe-needle U-100 1 mL #10 ea 03/09/22 Unknown History 31 gauge x 5/16 (BD Insulin Syringe Ultra-Fine) levothyroxine 75 mcg tablet 75 mcg PO DAILY@0600 03/09/22 11/07/24 11/06/24 History (Synthroid) lisinopril 20 mg tablet 20 mg PO DAILY 03/09/22 11/07/24 11/06/24 History pravastatin 10 mg tablet 10 mg PO BEDTIME 03/09/22 11/07/24 11/06/24 History empagliflozin 10 mg tablet 10 mg PO DAILY 12/01/22 11/07/24 11/06/24 History (Jardiance) acetaminophen 500 mg tablet 500 mg PO Q6H PRN Pain 11/07/24 11/07/24 Unknown History insulin degludec 100 unit/mL 40 unit subcut BEDTIME 11/07/24 11/07/24 11/06/24 History subcutaneous solution (Tresiba U-100 Insulin) meloxicam 15 mg tablet 15 mg PO DAILY PRN arthritis 11/07/24 11/07/24 Unknown History metformin 500 mg tablet,extended 500 mg PO BID 0511/07/24 11/06/24 History release 24 hr Physical Exam 2 Vital Signs and Narrative: Vital Signs: Last Vital Signs Temp 98.0 F 11/07/24 07:42 Pulse 68 11/07/24 07:42 Resp 16 11/07/24 07:42 BP 145/71 H 11/07/24 07:42 Pulse Ox 97 11/07/24 07:42 O2 Del Method Room Air 11/07/24 07:42 BMI result Body Mass Index 37.2 General: AOx3, no acute distress Resp: CTA bilaterally CVS: S1, S2, RRR GI: +BS, no distention, mild diffuse discomfort in all quadrants without guarding or rebound tenderness Skin: Warm, dry Neuro: Cranial nerves II-XII grossly intact bilaterally. Motor grossly intact bilaterally Extremities: Trace lower leg edema Psych: Appropriate affect Results Labs 11/07/24 05:30 11/07/24 05:30 Labs: Laboratory Results - last 24 hr 11/07/24 11/07/24 05:30 07:42 MCV 84.8 MCH 28.4 MCHC 33.5 RDW 13.2 Plt Count 239 D Immature Gran % (Auto) 0.4 Neut % (Auto) 75.9 H Lymph % (Auto) 18.4 L [place] % (Auto) 3.9 Eos % (Auto) 0.8 Baso % (Auto) 0.6 Lymph # (Auto) 2.6 [place] # (Auto) 0.6 Eos # (Auto) 0.1 Baso # (Auto) 0.1 Abs Immat Gran (auto) 0.05 H Absolute Neuts (auto) 10.8 H Absolute Nucleated RBC 0.000 Nucleated RBC % (auto) 0.0 Smear Tech's Comments VERIFIED PT 11.7 INR 1.0 APTT 29.8 Anion Gap 18 Estim Creat Clear Calc 83.4 Estimated GFR > 60 Random Glucose 267 H Calcium 8.3 L Total Bilirubin 0.4 Direct Bilirubin 0.1 AST 33 H ALT 29 Alkaline Phosphatase 107 Total Protein 6.5 Albumin 3.4 L Lipase 32 Assessment and Plan (1) Near syncope: Status: Acute Plan Pt is a 74-year-old female with a PMH significant for?insulin-dependent type 2 diabetes, CVA at age 37 , HTN, HLD, hypothyroidism, and hx of cholecystectomy who presents to the ED with lightheadedness, dizziness, nausea, and dry heaving episode this morning. Pt is admitted to the hospital under observation for treatment and further evaluation of near syncopal episode. Acute enteritis w/near syncopal episode Pt with lightheadedness, dizziness, nausea with dry heaving, diaphoresis, palpitations, and diffuse abdominal discomfort earlier this morning at 03:00 Episode of vomiting in the ED, had formed stool in the ED, no LOC or fall Similar previous episode in November 2022 with largely negative workup and attributed to vasovagal episode CT of abdomen/pelvis showing diffuse [place] wall thickening with engorgement of mesentery including LUQ, consistent with enteritis Pt given fluids and Compazine in the ED Will place on maintenance fluids Antiemetics and analgesics as needed Check C diff and GI panel if pt has diarrhea Clear liquid diet for now, advance as tolerated Check orthostatics Leukocytosis WBCs 14.2 at time of presentation Possibly reactionary to N/V, hemoconcentration as H&H also elevated at 16 0.5/49.2 No sepsis: No fever, tachycardia, or tachypnea Enteritis likely viral, no indication for antibiotics at this time Elevated troponins, chronic Serial troponins mildly elevated at 18.2 with repeat 19.0 Similar to previous EKG nonischemic Insulin-dependent type [address] on sliding scale insulin Continue Lantus at half dosing until diet advanced Hold Jardiance until diet advanced Hold metformin Diabetic diet once diet advanced HTN Continue lisinopril HLD/hx of CVA Continue aspirin, statin Hypothyroidism Continue levothyroxine Obesity class II Encourage weight loss DNR/DNI, verified with pt Attending:?Dr. Bradshaw DVT Prophylaxis: Lovenox Pt will be admitted to the hospital under observation for treatment and further evaluation of presyncope concerning for likely in the setting of enteritis. Quality Stroke Does the patient have a stroke diagnosis?: No VTE Prior VTE?: No VTE Risk Level:: Medical - moderate - high VTE Device Contraindication: Treatment Not Indicated VTE Drug Contraindication: N/A - Med Ordered
[2024-11-07] MEDS: iohexoL 350 MG/ML 100 ML INFUS..BTL IV (09:00)
[2024-11-07] MEDS: Lactated Ringers 1,000 ML 100 ML IVCONT ×2 (10:19→20:43)
--- NOTE | 2024-11-07 11:33 | PHA.MEDREC ---
Addendum entered by Corey Cota 11/07/24 12:03: reviewed Original Note: Pharmacy Consult ? Medication Reconciliation Pharmacy has completed the medication reconciliation. Spoke with patient and she confirmed her medications.
[2024-11-07 12:06] LABS: Glucose, Whole Blood 239 mg/dL (60-115)
[2024-11-07] MEDS: Insulin Lispro 100 UNIT/ML 3 ML VIAL SUBCUT ×3 (12:12→20:46)
[2024-11-07 13:08] LABS: Glucose, Whole Blood 203 mg/dL (60-115)
[2024-11-07 15:25] LABS: Appearance Urine Clear; Color Urine Yellow; Glucose Urine UA >=1000 mg/dL (Negative); Leukocyte Esterase Urine Negative (Negative); Nitrite Urine Negative (Negative); PH 5.5 (5.0-9.0); Specific Gravity - Urine >= 1.030 (1.005-1.025); UMIC TRIGGER UACC YES; Urine Blood Negative (Negative); Urine Ketones Negative (Negative); Urine Protein Negative (Neg-Trace)
[2024-11-07 15:46] LABS: Bacteria Urine Trace (None Seen); Hyaline Casts Urine 0-2 /LPF (0-2); Squamous Epithelial Cell Urine 0-2 /HPF (0-2); UACC Culture Trigger YES
[2024-11-07 16:06] LABS: Glucose, Whole Blood 225 mg/dL (60-115)
[2024-11-07 20:07] LABS: Glucose, Whole Blood 252 mg/dL (60-115)
[2024-11-07] MEDS: Pravastatin Sodium 10 MG TABLET PO ×2 (20:44→20:45)
[2024-11-07] MEDS: Aspirin Enteric Coated 81 MG TABLET.DR PO (20:44)
[2024-11-07] MEDS: Insulin Glargine,Hum.rec.anlog 100 UNIT/ML 10 ML VIAL 20 UNIT SUBCUT (20:45)
[2024-11-07] MEDS: 0.9 % Sodium Chloride Flush 3 ML SYRINGE IVFLUSH (20:47)
--- NOTE | 2024-11-08 01:48 | PC.NURSE ---
This RN assumed care last night at 1900, Pt AOX4, pleasant calm and cooperative, denies any pain/SOB/CP or lightheadedness, reports some tenderness to LUQ of abd, but denies any with palpation. Lung sounds clear, BSx4, skin intact, ambulates with standby. 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 VSS, Call [place] within reach. Will continue to reassess
[2024-11-08 03:25] VITALS: BP 145/56; PULSE 64; RESP 16; TEMP 36.1; O2SAT 96
[2024-11-08] MEDS: Levothyroxine Sodium 75 MCG TABLET PO (05:36)
[2024-11-08 06:39] LABS: Hemoglobin 12.3 g/dl (12.0-16.0); Mean Corpuscular HGB Conc 33.2 g/dl (31.0-35.0); Mean Corpuscular Hemoglobin 29.2 pg (27.0-33.0); Mean Corpuscular Volume 87.9 fL (80.0-98.0); Mean Platelet Volume 12.7 fL (9.4-12.3); Platelet Count 132 X10*3/uL (160-400); Red Blood Count 4.21 X10*6/uL (4.20-5.50); Red Cell Distribution Width 13.5 % (11.0-16.0); White Blood Count 8.4 X10*3/uL (4.8-10.8)
[2024-11-08 06:58] LABS: Alanine Aminotransferase 30 U/L (0-31); Albumin Level 3.1 g/dL (3.5-5.0); Alkaline Phosphatase 97 U/L (39-117); Anion Gap 11 (12-20); Aspartate Amino Transferase 34 U/L (5-31); Bilirubin Total 0.4 mg/dL (0.0-1.0); Blood Urea Nitrogen 8 mg/dL (9-16); Calcium 8.2 mg/dL (8.4-10.2); Carbon Dioxide 26 mmol/L (22-29); Chloride 110 mmol/L (96-108); Creatinine Clr Calc Pharmacy 103.5; Estimated Glomerular Filt Rate > 60; Glucose Random 139 mg/dL (60-115); Sodium 143 mmol/L (135-145); Total Protein 5.8 g/dL (6.5-8.0)
[2024-11-08 07:27] LABS: Glucose, Whole Blood 133 mg/dL (60-115)
[2024-11-08 08:08] VITALS: BP 185/75; PULSE 57; RESP 18; TEMP 36.6; O2SAT 94
[2024-11-08] MEDS: lisinopriL 20 MG TABLET PO (08:12)
[2024-11-08 11:33] LABS: Glucose, Whole Blood 206 mg/dL (60-115)
[2024-11-08] MEDS: Insulin Lispro 100 UNIT/ML 3 ML VIAL SUBCUT (12:34)
--- NOTE | 2024-11-08 13:03 | PM.DS ---
DS: Providers Provider Date of Service: 11/08/24 Date of admission: 11/07/24 08:41 Date of discharge: 11/08/24 Primary care physician: Fraaz Bethea MD DS: Diagnosis Discharge Diagnosis (1) Heart palpitations: Status: Acute (2) Enteritis: Status: Acute DS: Summary Hospital Course Hospital Course: Admission note HPI Pt is a 74-year-old female with a PMH significant for?insulin-dependent type 2 diabetes, CVA at age 37 , HTN, HLD, hypothyroidism, and hx of cholecystectomy who presents to the ED with lightheadedness, dizziness, nausea, and dry heaving episode this morning. Pt reports she was awoken from sleep at 03:00 with left upper abdominal pain, nausea, dry heaving, and diaphoresis. Also experienced palpitations but was unable to capture heart rate on her watch. Pt checked her sugars which were in the 170s. No LOC or fall. Pt did not want to stand up or attempt to move due to fear of syncopizing, so eventually called EMS to bring her to hospital for further evaluation. Pt had similar episode in November of 2022 where she was admitted to the hospital for observation. Workup at that time was negative and symptoms were attributed to likely vasovagal episode. Pt denies chest pain/pressure. No diarrhea. No SOB, difficulty breathing, or cough. No headache or acute vision changes. In the ED pt reports having a formed bowel movement. Pt reports has been eating and drinking normally prior to symptom onset. Pt also states there has been a question in the past of whether she has a bicuspid aortic valve. Undergoes regular echocardiograms every 5 years that have apparently been negative. In the ED pt was mildly hypertensive at 145/71, vitals otherwise stable and WNL. Afebrile, satting at 97% on RA. Labs were significant for leukocytosis of 14.2, increased H&H of 16.5/49.2, random glucose 267, troponins flat at 18.2 and 19.0. EKG demonstrated normal sinus rhythm without evidence of significant ST elevations or depressions. Pt was treated in the ED with IVF and Compazine. Pt is admitted to the hospital under observation for treatment and further evaluation of near syncopal episode. Hospital course The patient presented to the hospital with dry heaving and palpitations. CT scan was concerning for possible Enteritis which is likely viral in origin. she responded well to supportive measures of IV fluids and bowel rest and were able to tolerate diet once advanced. She was advised to advnace diet as tolerated at home and stay well hydrated. Discharge plan At home advance diet as tolerated stay well hydrated come back to the hospital for worsening pain, fever or inability to tolerate food Time Attestation Discharge Coordination Time (in mins): 27 Quality: Safe Use of Opioids Does Pt have an Active Cancer Diagnosis on the Problem List?: No Quality: Stroke Does the patient have a stroke diagnosis?: No Physical Exam Vital Signs: Vital Signs: Last Vital Signs Temp 97.9 F 11/08/24 08:08 Pulse 57 11/08/24 08:08 Resp 18 11/08/24 08:08 BP 185/75 H 11/08/24 08:08 Pulse Ox 94 11/08/24 08:08 O2 Del Method Room Air 11/08/24 08:08 BMI result Body Mass Index 37.1 Const: Other: Constitutional : Awake, interactive, not in distress Neck : Normal inspection, Supple Cardiovascular : RRR, no JVP, no lower extremity edema Respiratory : good bilateral air entry, no crackles, wheezes or rhonchi Gastrointestinal: soft, lax, Normal bowel sounds, Non tender Skin : Warm, Dry Neurological : Alert & oriented x3, No focal deficit DS: Data Data Completed and Pending Labs on day of discharge: Laboratory Results - last 24 hr 11/07/24 11/07/24 11/07/24 13:04 15:08 16:02 WBC RBC Hgb Hct MCV MCH MCHC RDW Plt Count MPV Absolute Nucleated RBC Nucleated RBC % (auto) Sodium Potassium Chloride Carbon Dioxide Anion Gap BUN Creatinine Estim Creat Clear Calc Estimated GFR POC Glucose 203 H 225 H Random Glucose Calcium Total Bilirubin AST ALT Alkaline Phosphatase Total Protein Albumin Urine Color Yellow Urine Appearance Clear Urine pH 5.5 Ur Specific [place] >= 1.030 H Urine Protein Negative Urine Glucose (UA) >=1000 H Urine Ketones Negative Urine Blood Negative Urine Nitrite Negative Ur Leukocyte Esterase Negative Urine RBC 6-10 H Urine WBC 6-10 H Ur Squamous Epith Cells 0-2 Urine Bacteria Trace Hyaline Casts 0-2 11/07/24 11/08/24 11/08/24 19:54 06:24 07:22 WBC 8.4 RBC 4.21 D Hgb 12.3 D Hct 37.0 D MCV 87.9 MCH 29.2 MCHC 33.2 RDW 13.5 Plt Count 132 L D MPV 12.7 H Absolute Nucleated RBC 0.000 Nucleated RBC % (auto) 0.0 Sodium 143 Potassium 4.0 Chloride 110 H Carbon Dioxide 26 Anion Gap 11 L BUN 8 L Creatinine 0.62 Estim Creat Clear Calc 103.5 Estimated GFR > 60 POC Glucose 252 H 133 H Random Glucose 139 H Calcium 8.2 L Total Bilirubin 0.4 AST 34 H ALT 30 Alkaline Phosphatase 97 Total Protein 5.8 L Albumin 3.1 L Urine Color Urine Appearance Urine pH Ur Specific [place] Urine Protein Urine Glucose (UA) Urine Ketones Urine Blood Urine Nitrite Ur Leukocyte Esterase Urine RBC Urine WBC Ur Squamous Epith Cells Urine Bacteria Hyaline Casts 11/08/24 11:26 WBC RBC Hgb Hct MCV MCH MCHC RDW Plt Count MPV Absolute Nucleated RBC Nucleated RBC % (auto) Sodium Potassium Chloride Carbon Dioxide Anion Gap BUN Creatinine Estim Creat Clear Calc Estimated GFR POC Glucose 206 H Random Glucose Calcium Total Bilirubin AST ALT Alkaline Phosphatase Total Protein Albumin Urine Color Urine Appearance Urine pH Ur Specific [place] Urine Protein Urine Glucose (UA) Urine Ketones Urine Blood Urine Nitrite Ur Leukocyte Esterase Urine RBC Urine WBC Ur Squamous Epith Cells Urine Bacteria Hyaline Casts Preliminary micro results at discharge 11/07/24 Unknown Urine Culture - Preliminary Urine clean catch - Clean Catch Midstream Culture too young to evaluate. Imaging CT scan - abdomen: Radiologist's impression: ITS Impressions Abdomen/Pelvis CT 11/07/24 08:47 IMPRESSION: 1. Diffuse jejunal wall thickening with engorgement of the mesentery and fluid in the left upper quadrant. Findings are consistent with enteritis which could be inflammatory, infectious, or ischemic in nature. 2. Cirrhosis of the liver. Electronically signed by: Abhay Diaz MD 11/07/2024 09:37 AM EDT Discharge Plan Discharge Anticipated Discharge Date/Time: 11/08/24 12:45 Patient Disposition: Home, Self-Care Discharge Diagnosis: Acute enteritis Referrals: Faraz Bethea MD [Primary Care Provider] - 1 Week Discharge Medications: Continued insulin degludec [Tresiba U-100 Insulin] 100 unit/mL solution 40 unit SUBCUT BEDTIME meloxicam 15 mg tablet 15 mg PO DAILY PRN (Reason: arthritis) acetaminophen 500 mg Tablet 500 mg PO Q6H PRN (Reason: Pain) metformin 500 mg tablet extended release 24 hr 500 mg PO BID Jardiance 10 mg tablet 10 mg PO DAILY (DME) insulin syringe-needle U-100 [BD Insulin Syringe Ultra-Fine] 1 mL 31 gauge x 5/16 syringe See Rx Instructions .ROUTE .MEDSUPPLY Qty: 10 Rx Instructions: As directed lisinopril 20 mg tablet 20 mg PO DAILY levothyroxine [Synthroid] 75 mcg tablet 75 mcg PO DAILY@0600 pravastatin 10 mg tablet 10 mg PO BEDTIME aspirin [Adult Low Dose Aspirin] 81 mg tablet,delayed release (DR/EC) 81 mg PO BEDTIME Discharge Orders: Discharge Order (Routine); Ordered 11/08/24 Ordered By: Davis Bradshaw Diet: Diabetic diet Activity on Discharge: As tolerated Stand Alone Forms: Patient Portal Discharge page Print Language: [place] Islander Care Plan Goals: you presented to the hospital with dry heaving and palpitations. CT scan was concerning for possible Enteritis which is likely viral in origin. You responded well to supportive measures of IV fluids and bowel rest and were able to tolerate diet. At home advance diet as tolerated stay well hydrated come back to the hospital for worsening pain, fever or inability to tolerate food Health Concerns: Enteritis Plan of Treatment: Supportive measures: Fluids, tylenol as needed Assessment: as above
--- NOTE | 2024-11-08 13:07 | MHC.CM.PN ---
PT REPORTS SHE LIVES WITH HER AND IS INDEPENDENT WITH CARE SHE HAS NO DME AND NO SERVICES COPY OF HCP REQUESTED PCP: SLOANE BARROSO OBSERVATION NOTICE DELIVERED DCP: HOME TODAY WITH NO SERVICES VIA PRIVATE TRANSPORT
[2024-11-08 13:19] VITALS: BP 160/70
== END 2024-11-08 14:29 | disposition home or self-care (01) ==
LOC: HO.ED 07:13 → HO.EDOVER 10:02 → HO.S3 11:38
PROVIDERS: Internal Medicine; Admitting Provider Student in an Organized Health Care Education/Training Program; Emergency Provider Emergency Medicine Emergency Medical Services; PCP Family Medicine; Visit Provider Student in an Organized Health Care Education/Training Program
DX: K52.9 Noninfective gastroenteritis and colitis, unspecified (principal); R00.2 Palpitations; R55 Syncope and collapse; R11.0 Nausea; R42 Dizziness and giddiness; I10 Essential (primary) hypertension; E11.9 Type 2 diabetes mellitus without complications; E03.9 Hypothyroidism, unspecified; D72.829 Elevated white blood cell count, unspecified; R10.9 Unspecified abdominal pain; Z79.4 Long term (current) use of insulin; Z79.899 Other long term (current) drug therapy; Z86.73 Personal history of transient ischemic attack (TIA), and cerebral infarction without residual deficits
CPT/HCPCS: 36415; 74177; 80048; 80053; 80076; 81001; 82947; 83690; 84484; 85025; 85027; 85610; 85730; 87086; 93005; 96361; 96374; 99221; 99285; J0737; J7120; Q9967

== ENCOUNTER → 2024-11-07 05:12 | Outpatient (BNV) | payer MEDICARE, SELFPAY | PROVIDERS: Admitting Provider Student in an Organized Health Care Education/Training Program; Emergency Provider Emergency Medicine Emergency Medical Services; PCP Family Medicine; Visit Provider Internal Medicine Cardiovascular Disease | DX: R94.31 Abnormal electrocardiogram [ECG] [EKG] (principal); R55 Syncope and collapse | CPT/HCPCS: 93010 ==

== ENCOUNTER → 2024-11-07 08:30 | Outpatient (BNV) | payer MEDICARE, SELFPAY | PROVIDERS: Admitting Provider Student in an Organized Health Care Education/Training Program; Emergency Provider Emergency Medicine Emergency Medical Services; PCP Family Medicine; Visit Provider Radiology Diagnostic Radiology | DX: K74.60 Unspecified cirrhosis of liver (principal) | CPT/HCPCS: 74177 ==

== ENCOUNTER → 2024-11-07 08:41 | Outpatient (BNV) | payer MEDICARE, SELFPAY | PROVIDERS: Admitting Provider Student in an Organized Health Care Education/Training Program; Emergency Provider Emergency Medicine Emergency Medical Services; PCP Family Medicine; Visit Provider Student in an Organized Health Care Education/Training Program | DX: R00.2 Palpitations (principal); K52.9 Noninfective gastroenteritis and colitis, unspecified; R55 Syncope and collapse | CPT/HCPCS: 99222; 99238 ==

== ENCOUNTER 2024-12-03 11:47 | Outpatient (REF) | payer MEDICARE, SELFPAY ==
[2024-12-03 13:47] LABS: Basophils Absolute Auto 0.1 X10*3/uL (0.0-0.2); Basophils Percent Auto 1.1 % (0-2); Eosinophils Absolute Auto 0.2 X10*3/uL (0.0-0.4); Eosinophils Percent Auto 2.5 % (0-4); Hemoglobin 13.6 g/dl (12.0-16.0); Imm Gran Abs Auto 0.01 X10*3/uL (0.00-0.03); Imm Gran Pct Auto 0.1 % (0.0-0.4); Lymphocytes Absolute Auto 1.5 X10*3/uL (1.2-4.9); Lymphocytes Percent Auto 19.9 % (20-40); MANUAL DIFF FLAG SCAN; Mean Corpuscular HGB Conc 32.4 g/dl (31.0-35.0); Mean Corpuscular Hemoglobin 28.2 pg (27.0-33.0); Monocytes Absolute Auto 0.5 X10*3/uL (0.1-1.2); Monocytes Percent Auto 6.8 % (2-11); Neutrophils Absolute Auto 5.1 x10*3/uL (2.0-8.3); Neutrophils Percent Auto 69.6 % (45-73); PLT CLUMP 1; Red Blood Count 4.83 X10*6/uL (4.20-5.50); Red Cell Distribution Width 13.2 % (11.0-16.0); SCAN SMEAR FLAG 1
[2024-12-03 13:48] LABS: White Blood Count 7.3 X10*3/uL (4.8-10.8)
[2024-12-03 13:59] LABS: Iron 63 mcg/dL (30-160); Percent Iron Saturation 23 % (15-50); Total Iron Binding Capacity 272 mcg/dL (228-428); Unsaturated Iron Binding 209 ug/dL
[2024-12-03 14:16] LABS: Folate 10.9 ng/mL (> or = 4.0); Vitamin B12 360 pg/mL (200-900)
[2024-12-03 14:22] LABS: Ferritin 87 ng/mL (10-250)
[2024-12-03 14:35] LABS: Mean Platelet Volume 13.1 fL (9.4-12.3); Platelet Count 176 X10*3/uL (160-400); SLIDE REVIEW VERIFIED
== END 2024-12-03 11:48 | disposition home or self-care (01) ==
LOC: HO.10HDL 11:47
PROVIDERS: Visit Provider Family Medicine
DX: D64.9 Anemia, unspecified (principal)
CPT/HCPCS: 36415; 82607; 82728; 82746; 83540; 85025

== ENCOUNTER 2025-03-04 13:33 | Outpatient (AMB) | payer MEDICARE, SELFPAY ==
--- NOTE | 2025-03-04 13:38 | A.OFFPC_ITS ---
Vital Signs 03/04/25 13:47 03/04/25 14:18 Height 5 ft 7 in Weight 105.687 kg BMI 36.5 BP 170/80 H 150/68 H Pulse 73 Pulse Source Pulse Oximeter Temp 98.1 F Temp Source Temporal Artery Scan Pulse Oximetry (%) 98 Oxygen Delivery Method Room Air Intake Visit Reasons: Routine/ Dr bethea Post Doctoral Researcher Required: No Accompanied by: Self / Same As Patient Allergies shellfish derived Allergy (Severe, Verified 03/04/25 13:39) Anaphylaxis, Hives, Shortness of Breath SILK TAPE Allergy (Mild, Uncoded 03/04/25 13:39) RASH Medication List - Last Reconciled 03/04/25 by SARAHI Reynoso acetaminophen 500 mg PO Q6H PRN aspirin (Adult Low Dose Aspirin) 81 mg PO BEDTIME cephalexin 500 mg PO Q8H empagliflozin (Jardiance) 10 mg PO DAILY insulin degludec (Tresiba U-100 Insulin) 40 units subcut BEDTIME insulin syringe-needle U-100 (BD Insulin Syringe Ultra-Fine) As directed lancets ([employer] Delica Plus Lancet) As directed levothyroxine (Synthroid) 75 mcg PO DAILY@0600 lisinopril 20 mg PO DAILY meloxicam 15 mg PO DAILY PRN metformin ER 500 mg PO BID pravastatin 10 mg PO BEDTIME promethazine 25 mg [place] Tobacco use date assessed: 03/04/25 Fall risk assessment: No Falls in past year Last assessed Fall Risk: 03/04/25 Dental Screening Dental Screen Date: 03/04/25 Did you have a dental visit in the last 12 months?: Yes Did you have a dental problem in the last 6 months where you did not have access to dental care?: No Was dental information given to patient?: No HPI HPI Comments History of Present Illness Details 74-year-old female with history of type 2 diabetes with diabetic polyneuropathy, hypothyroidism, hypercholesterolemia, stress incontinence, anemia of chronic disease, hypertension, osteoarthritis, obesity presents to the office today for management of chronic conditions and to establish care. She is a former patient of Dr. Bethea, last seen 12/03. History of breast cancer-lumpectomy Dr. Jimenez. No longer following with Oncology/surgery History of CVA-36 years ago . She is still having difficulty with recall and proprioception Type 2 diabetes/diabetic neuropathy-last hemoglobin A1c 9.9%. On 40 units Tresiba, metformin 500 mg ER twice daily and Jardiance 10 mg daily. Reports she has difficulty with diabetic diet secondary to her who has certain dietary needs so she has been eating what he has been eating. Follows with Dr. Quintana and diabetic eye exams are up-to-date. Denies any diabetic eye disease. 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 Last TSH 3.07, free T4 1.05 Hypertension-on lisinopril 20 mg daily initial BP 170/80, recheck 150/68. Reports her , José Miguel, checks her blood pressures at home and is reportedly normal. Stress incontinence-managing, wearing pads Osteoarthritis multiple joints- on meloxicam which helps and only prn. Fall Concerns: Ingrown toenails Health maintenance: Last screening mammogram 02/2024, negative for malignancy. Upcoming mammogram 03/09 Last colonoscopy 08/2015 with 10 year follow-up advised. Dr. Carballo ROS: General: No fevers, malaise, unintentional weight loss HEENT: No blurred vision, diplopia. No sore throat, nasal congestion, rhinorrhea, sinus pain, ear pain Cardiovascular: No chest pain, palpitations, or leg edema Respiratory: No shortness of breath, wheezing, cough GI: No abdominal pain, nausea, vomiting, diarrhea, constipation, melena, hematochezia : No dysuria, hematuria, increased urinary frequency, decreased urinary output MSK: No myalgia, back pain Neuro: No headaches, weakness, paresthesias Skin: No rashes or lesions. See HPI EXAM: Constitutional - Awake and Alert, No apparent distress Eyes - PERRL Cardiovascular - S1S2, RRR, No edema Respiratory - Normal lung expansion, Normal respiratory effort, No respiratory distress, CTA bilaterally Extremities - no calf tenderness bilaterally, no swelling Skin - Warm/Dry. Erythema along the right great toenail bed with medial ingrown toenail Neurological - Alert & oriented x3 Psychological - Appropriate affect [facility] Medical History (Updated 03/06/25 @ 17:34 by SARAHI Reynoso) Hypertension Hypothyroidism Class 2 obesity Hyperlipidemia Osteoarthritis, multiple sites Stress incontinence History of breast cancer History of CVA (cerebrovascular accident) Diabetes Surgical History History of colonoscopy (~09/01/15) H/O right knee surgery Social History Household Members: Spouse Housing: House Do you presently have visiting nurse or other home services: No Patient Tobacco Use Status: Never used Tobacco e-Cigarette/Vaping Use: Never Used service: No Current occupational status: retired Cognitive needs: No Hearing needs: No Vision needs: Yes (Reading glasses/cataracts) Questionnaire PHQ-9 Over the last 2 weeks, how often have you been bothered by any of the following problems? 1. Little interest or pleasure in doing things: not at all 2. Feeling down, depressed, or hopeless: several days 3. Trouble falling or staying asleep, or sleeping too much: more than half the days 4. Feeling tired or having little energy: several days 5. Poor appetite or overeating: not at all 6. Feeling bad about yourself - or that you are a failure or have let yourself or your family down: not at all 7. Trouble concentrating on things, such as reading the newspaper or watching television: not at all 8. Moving or speaking so slowly that other people could have noticed. Or the opposite - being so fidgety or restless that you have been moving around a lot more than usual: not at all 9. Thoughts that you would be better off or of hurting yourself in some way: not at all Total score: 4 Source: Developed by Drs. Abhay Burnett, Aletha Amor, Karthikeyan Hernandes and colleagues, with an educational vel from [employer]. Thrive Questionnaire Date Thrive assessed: 03/04/25 I am a: Patient What is your living situation today?: I have a steady place to live Within the past 12 months, did the food you bought not last and you didn't have the money to get more?: Never true Within the past 12 months, did you worry whether your food would run out before you got money to buy more?: Never true Do you have trouble paying for medicines?: No Do you have trouble getting transportation to medical appointments?: No Do you have trouble paying your heating and electricity bill?: No Do you have trouble taking care of your child, family member or friend?: No Do you have trouble with day-to-day activities such as bathing, preparing meals, shopping, managing finances, etc.?: No Are you currently unemployed and looking for a job?: No Are you interested in more education?: No Please select the resources that you would like help with: None THRIVE Score: 0 VINICIO-7 AMB Questionnaire VINICIO-7 Date VINICIO - 7 assessed: 03/04/25 Feeling nervous, anxious, or on edge: 0 = Not at all Not being able to stop or control worryin = Not at all Worrying too much about different things: 1 = Several days Trouble relaxin = Several days Being so restless that it is hard to sit still: 0 = Not at all Becoming easily annoyed or irritable: 1 = Several days Feeling afraid as if something awful might happen: 2 = More than half the days Total VINICIO-7 score (0-4 normal; 5-9 mild; 10-14 moderate; 15-21 severe): 5 Source: Developed by Drs. Abhay Burnett, Aletha Amor, Karthikeyan Hernandes and colleagues, with an educational vel from [employer]. Physical exam (Primary Care) Vital Signs: Last Vital Signs Temp 98.1 F 03/04/25 13:47 Pulse 73 03/04/25 13:47 BP 150/68 H 03/04/25 14:18 Pulse Ox 98 03/04/25 13:47 Oxygen Delivery Method Room Air 03/04/25 13:47 BMI result Body Mass Index 36.5 Tobacco/Smoking Status: Tobacco use Status Tobacco use date assessed 03/04/25 03/04/25 13:51 Patient Tobacco Use Status Never used Tobacco 03/04/25 13:40 e-Cigarette/Vaping Use Never Used 03/04/25 13:51 PHQ-9: PHQ-9 Score PHQ-9: Total score 4 03/04/25 14:10 Thrive Assessment: Date of Thrive Assessment Date Thrive assessed 03/04/25 03/04/25 13:51 Coding Level of Care Code New Pt Level 4 (56735) Complex EM visit Add On G2211 Diagnoses Diabetes E11.9 Stress incontinence N39.3 Hyperlipidemia E78.5 Class 2 obesity E66.812 Paronychia of great toe L03.039 Assessment & Plan Assessment & Plan (1) Diabetes: Code(s): E11.9 - Type 2 diabetes mellitus without complications Category: Medical Plan: Hemoglobin A1c ordered. Previously uncontrolled. Continue Tresiba 40 units at bedtime, Jardiance 10 mg daily, metformin 500 mg twice daily ER. Counseled on diabetic diet. Continue with annual eye exams and foot exams. (2) Stress incontinence: Code(s): N39.3 - Stress incontinence (female) (male) Category: Medical Plan: Continue with Kegel exercises. Can refer to physical therapy for pelvic floor therapy if interested (3) Hyperlipidemia: Code(s): E78.5 - Hyperlipidemia, unspecified Category: Medical Plan: Lipid panel ordered. Continue pravastatin (4) Class 2 obesity: Code(s): E66.812 - Obesity, class 2 Category: Medical Plan: Weight loss efforts encouraged. Recommend diet lower in saturated fats and highly processed foods. Emphasize protein, fruits, vegetables. Limit refined sugars and simple carbohydrates. Recommend 150 minutes of moderate intensive exercise per week (5) Paronychia of great toe: Code(s): L03.039 - Cellulitis of unspecified toe Category: Medical Plan: Recommend warm soaks. Should symptoms not be improving, prescribed Keflex Plan Follow-up in the office in 4 months, labs as ordered Orders: Orders Lipid Panel Today E78.5 - Hyperlipidemia, unspecified Basic Metabolic Panel 03/04/25 L03.039 - Cellulitis of unspecified toe Hemoglobin A1c 03/04/25 L03.039 - Cellulitis of unspecified toe Medications: New cephalexin 500 mg PO Q8H 15 caps 0RF
[2025-03-04 13:47] VITALS: BP 170/80; PULSE 73; TEMP 36.7; O2SAT 98; BMI 36.5
[2025-03-04 14:18] VITALS: BP 150/68
--- OUTSIDE RECORDS SUMMARY | 2025-03-04 16:35 | XMS_ITS | Patient Health Record ---
Author Organization [facility] Address [address] [place] [address] Care Team Providers Care Pediatric Physical Therapist Name Role Phone Maribeth(inactive) Kehinde OLIVO Primary Care Provider U Casey Paez Jr Unavailable [phone] Allergies Allergen (clinical drug ingredient) Drug/Non Drug Allergy documented on EMR Reaction Allergy Type Onset Date Status Shellfish (FN) shell fish (uncoded) Unknown Allergy Active Reason For Referral No Information Medications Medication SIG (Take, Route, Frequency, Duration) Notes Start Date End Date Status Advil 200 MG 1 tablet as needed O rally prn Active metFORMIN HCl 1000 MG 1 tablet with meal s Orally Twice a day Active MoviPrep 100 GM as directed before colonoscopy Orally for 1 dose 05/12/2015 Active Aspir-81 81 MG 1 tablet Orally Once a day Active Lisinopril 20 MG 1 tablet Orally Once a day Active Levothyroxine Sodium 75 MCG 1 tablet Ora lly Once a day Active Problems Problem Type SNOMED Code ICD Code Onset Dates Problem Status W/U Status Risk Notes Problem 702180244 Colon cancer screening (Z12.11) Active confirmed Problem 380749606 residential current use of aspirin (Z79.82) Active confirmed Problem 154808235 Encounter for long-term (current) use of other high-risk medications (Z79.899) Active confirmed Plan Of Treatment Future Test Test Name Order Date COLONOSCOPY 05/12/2015 Insurance Providers Payer Name Payer Address Payer Phone Subscriber Number Group Number Insured Name Patient Relationship to Insured Coverage Start Date Coverage End Date [facility] [employer] [facility] [address] [place] [address] [id number] Self - patient is the insured Medical (General) History Medical History History ICD Code colonoscopy 06-20-2002 colon polyps CVA following the delivery of her first son. osteoarthritis Denies PR,Lung disease,renal disease diabetes mellitus Surgical History Surgery Date(Month/Year) cholecystectomy lumpectomy, right breast right knee arthroscopy
== END 2025-03-04 14:22 | disposition home or self-care (01) ==
LOC: HO.HMCHD 13:33
PROVIDERS: PCP Physician Assistant; Visit Provider Physician Assistant
DX: E11.9 Type 2 diabetes mellitus without complications (principal); N39.3 Stress incontinence (female) (male); E78.5 Hyperlipidemia, unspecified; E66.812 Obesity, class 2; L03.039 Cellulitis of unspecified toe

== ENCOUNTER → 2025-03-04 13:33 | Outpatient (BNVA) | payer MEDICARE, SELFPAY | PROVIDERS: PCP Physician Assistant; Visit Provider Physician Assistant | DX: E11.42 Type 2 diabetes mellitus with diabetic polyneuropathy (principal); E03.9 Hypothyroidism, unspecified; I10 Essential (primary) hypertension; N39.3 Stress incontinence (female) (male); E78.5 Hyperlipidemia, unspecified; E66.812 Obesity, class 2; Z68.36 Body mass index [BMI] 36.0-36.9, adult; L03.039 Cellulitis of unspecified toe; Z85.3 Personal history of malignant neoplasm of breast; Z86.73 Personal history of transient ischemic attack (TIA), and cerebral infarction without residual deficits; Z79.4 Long term (current) use of insulin; Z79.84 Long term (current) use of oral hypoglycemic drugs; Z79.899 Other long term (current) drug therapy; Z13.30 Encounter for screening examination for mental health and behavioral disorders, unspecified; Z13.39 Encounter for screening examination for other mental health and behavioral disorders | CPT/HCPCS: 96127; 99202 ==

== ENCOUNTER 2025-03-09 09:44 | Outpatient (REF) | payer MEDICARE, SELFPAY ==
--- NOTE | ~2025-03-09 | MM_ITS ---
EXAMINATION: MM SCREENING DIGITAL BREAST TOMOSYNTHESIS, BILATERAL CLINICAL INFORMATION: Screening. Asymptomatic. Personal history of right breast lumpectomy for breast cancer in 2001. COMPARISON: Comparison made to multiple prior, most recent March 03, 2024, and most remote February 05, 2020. TECHNIQUE: Digital breast tomosynthesis is performed in mediolateral oblique and craniocaudal views along with computer-aided detection (CAD). Synthesized 2D images are generated from the tomosynthesis. FINDINGS: BREAST COMPOSITION: There are scattered areas of fibroglandular density (ACR BI-RADS breast composition Category b). RIGHT BREAST: Post lumpectomy changes. No significant masses, suspicious calcifications or other abnormalities are seen. LEFT BREAST: No significant masses, suspicious calcifications or other abnormalities are seen. MM/MM tomosynthesis screening BI IMPRESSION: BILATERAL BREASTS: Benign, no mammographic evidence of malignancy. Normal interval follow-up is recommended in 12 months. ASSESSMENT: BI-RADS 2 - Benign Findings RECOMMENDATION: Routine annual mammography screening. FOLLOW-UP: 1 year F/U This examination should not preclude the clinical evaluation of a suspicious palpable abnormality. This patient's information was entered into a reminder system with a target due date for their next mammogram. Electronically signed by: Fern Parekh MD 03/10/2025 05:13 PM EDT
--- OUTSIDE RECORDS SUMMARY | 2025-03-09 11:55 | XMS_ITS | Patient Health Record ---
Author Organization [facility] Address [address] [place] [address] Care Team Providers Care Wrecking Mechanic Name Role Phone Maribeth(inactive) Kehinde OLIVO Primary Care Provider U Casey Paez Jr Unavailable Allergies Allergen (clinical drug ingredient) Drug/Non Drug [...] Problem Status W/U Status Risk Notes Problem [id number] Colon cancer screening (Z12.11) Active confirmed Problem [id number] snf current use of aspirin (Z79.82) Active confirmed Problem 573170198 Encounter for long-term (current) use of other high-risk medications (Z79.899) Active confirmed Plan Of Treatment Future Test Test Name Order Date COLONOSCOPY 05/12/2015 Insurance Providers Payer Name Payer Address Payer Phone Subscriber Number Group Number Insured Name Patient Relationship to Insured Coverage Start Date Coverage End Date [facility] [employer] [address] [place] [address] [phone] [id number] Self - patient is the insured Medical (General) History Medical History History ICD Code colonoscopy 06-20-2002 colon polyps CVA following the delivery of her first son. osteoarthritis Denies MD,Lung disease,renal disease diabetes mellitus Surgical History Surgery Date(Month/Year) cholecystectomy lumpectomy, right breast right knee arthroscopy
== END 2025-03-09 09:45 | disposition home or self-care (01) ==
LOC: HO.MAMMO 09:44
PROVIDERS: PCP Physician Assistant; Visit Provider Family Medicine
DX: Z12.31 Encounter for screening mammogram for malignant neoplasm of breast (principal)
CPT/HCPCS: 77063; 77067

== ENCOUNTER → 2025-03-09 10:00 | Outpatient (BNV) | payer MEDICARE, SELFPAY | PROVIDERS: PCP Physician Assistant; Visit Provider Radiology Body Imaging | DX: Z12.31 Encounter for screening mammogram for malignant neoplasm of breast (principal) | CPT/HCPCS: 77063; 77067 ==

== ENCOUNTER 2025-04-16 11:28 | Outpatient (REF) | payer MEDICARE, SELFPAY ==
[2025-04-16 13:01] LABS: Anion Gap 12 (12-20); Blood Urea Nitrogen 11 mg/dL (9-16); Calcium 8.9 mg/dL (8.4-10.2); Carbon Dioxide 27 mmol/L (22-29); Chloride 108 mmol/L (96-108); Cholesterol 254 mg/dL (<200); Estimated Glomerular Filt Rate > 60; HDL Cholesterol 58 mg/dL (>40); Potassium 4.4 mmol/L (3.3-5.1); Sodium 143 mmol/L (135-145); Triglycerides 249 mg/dL (<150)
== END 2025-04-16 11:29 | disposition home or self-care (01) ==
LOC: HO.LAB 11:28
PROVIDERS: PCP Physician Assistant; Visit Provider Physician Assistant
DX: Z13.1 Encounter for screening for diabetes mellitus (principal); E78.5 Hyperlipidemia, unspecified; L03.039 Cellulitis of unspecified toe
CPT/HCPCS: 36415; 80048; 80061; 83036

== ENCOUNTER 2025-06-03 13:14 | Outpatient (AMB) | payer MEDICARE, SELFPAY ==
--- NOTE | 2025-06-03 13:18 | A.OFFPC_ITS ---
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 Required: No Accompanied by: Self / Same As Patient Allergies shellfish derived Allergy (Severe, Verified 06/03/25 14:59) Anaphylaxis, Hives, Shortness of Breath SILK TAPE Allergy (Mild, Uncoded 06/03/25 14:59) RASH Medication List - Last Reconciled 06/03/25 by SARAHI Reynoso acetaminophen 500 mg PO Q6H PRN aspirin (Adult Low Dose Aspirin) 81 mg PO BEDTIME cephalexin 500 mg PO Q8H empagliflozin (Jardiance) 10 mg PO DAILY insulin degludec (Tresiba U-100 Insulin) 50 units (0.5 mL) subcut BEDTIME insulin syringe-needle U-100 (BD Insulin Syringe Ultra-Fine) As directed lancets ([employer] Delica Plus Lancet) As directed levothyroxine (Synthroid) 75 mcg PO DAILY@0600 lisinopril 20 mg PO DAILY meclizine 25 mg PO TID PRN meloxicam 15 mg PO DAILY PRN metformin ER 1,000 mg (2 x 500 mg) PO BID pravastatin 40 mg PO BEDTIME promethazine 25 mg [place] Tobacco use date assessed: 03/04/25 Dental Screening Dental Screen Date: 03/04/25 HPI HPI Comments History of Present Illness Details 74-year-old female with history of type 2 diabetes with diabetic polyneuropathy, hypothyroidism, hypercholesterolemia, stress incontinence, anemia of chronic disease, hypertension, osteoarthritis, obesity presents to the office today for management of chronic conditions and to establish care. She is a former patient of Dr. Bethea, last seen 12/03. History of breast cancer-lumpectomy Dr. Jimenez. No longer following with Oncology/surgery History of CVA-36 years ago . She is still having difficulty with recall and proprioception Type 2 diabetes/diabetic neuropathy-last hemoglobin A1c 10.8%. Tresiba was increased to 50 units, per patient, this needs to be changed to Lantus per her insurance company. Metformin was also increased to 1000 mg twice daily. She does occasionally get GI side effects with this will need take 500 mg if that is the case. She has been working hard at diabetic diet and has noted great improvement in glucose levels. Fasting levels ranged from 60-120. Denies symptoms of hypoglycemia but will eat when her levels are low. Follows with Dr. Quintana and diabetic eye exams are up-to-date. Denies any diabetic eye disease. 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 Last TSH 3.07, free T4 1.05 Hypertension-on lisinopril 20 mg daily initial BP 170/80, recheck 150/68. Reports her , José Miguel, checks her blood pressures at home and is reportedly normal. Stress incontinence-managing, wearing pads Osteoarthritis multiple joints- on meloxicam which helps and only prn Concerns: Vertigo-has history. Several nights ago was lying in bed and turned her head to the right quickly when she then turned over again she experienced severe vertigo, when she went to get up she almost fell. Reports a room spinning dizziness, no lightheadedness. States since then, symptoms have been near constant. No injury or falls. She states she has to grab onto things to keep her balance. Denies any vision changes, pain with eye movements, otalgia, tinnitus, loss of hearing. She does endorse some right ear fullness. Health maintenance: Last screening mammogram 02/2024, negative for malignancy. Upcoming mammogram 03/09 Last colonoscopy 08/2015 with 10 year follow-up advised. Dr. Carballo ROS: See HPI EXAM: Constitutional - Awake and Alert, No apparent distress Eyes - PERRL Ears-external ears normal, canals clear. TMs pearly benoit and intact Cardiovascular - S1S2, RRR, No edema Respiratory - Normal lung expansion, Normal respiratory effort, No respiratory distress, CTA bilaterally Extremities - no calf tenderness bilaterally, no swelling Skin - Warm/Dry Neurological - Alert & oriented x3, horizontal nystagmus R>L, otherwise CN II- XII in tact. 10/27 strength bue Psychological - Appropriate affect [facility] Medical History (Updated 03/06/25 @ 17:34 by SARAHI Reynoso) Hypertension Hypothyroidism Class 2 obesity Hyperlipidemia Osteoarthritis, multiple sites Stress incontinence History of breast cancer History of CVA (cerebrovascular accident) Diabetes Surgical History History of colonoscopy (~09/01/15) H/O right knee surgery Social History Household Members: Spouse Housing: House Do you presently have visiting nurse or other home services: No Patient Tobacco Use Status: Never used Tobacco e-Cigarette/Vaping Use: Never Used service: No Current occupational status: retired Cognitive needs: No Hearing needs: No Vision needs: Yes (Reading glasses/cataracts) Questionnaire Thrive Questionnaire Date Thrive assessed: 03/04/25 AUDIT C Alcohol Use Questionnaire (AUDIT-C) 2. How many drinks containing alcohol do you have on a typical day when you are drinking?: 1 or 2 3. How often do you have six or more drinks on one occasion?: Never Total Score: 0 VINICIO-7 AMB Questionnaire VINICIO-7 Date VINICIO - 7 assessed: 03/04/25 Source: Developed by Drs. Abhay Burnett, Aletha Amor, Karthikeyan Hernandes and colleagues, with an educational vel from [email or web address] Physical exam (Primary Care) Vital Signs: Last Vital Signs Temp 97.0 F 06/03/25 13:23 Pulse 114 H 06/03/25 13:23 BP 142/80 H 06/03/25 13:23 Pulse Ox 94 06/03/25 13:23 Oxygen Delivery Method Room Air 06/03/25 13:23 Tobacco/Smoking Status: Tobacco use Status Tobacco use date assessed 03/04/25 06/03/25 13:19 Patient Tobacco Use Status Never used Tobacco 06/03/25 13:19 e-Cigarette/Vaping Use Never Used 06/03/25 13:19 Thrive Assessment: Date of Thrive Assessment Date Thrive assessed 03/04/25 06/03/25 13:19 Coding Level of Care Code Est Pt Level 4 (31579) Add On Problem Visit Only Diagnoses Diabetes E11.9 Hyperlipidemia E78.5 Class 2 obesity E66.812 Hypothyroidism E03.9 Hypertension I10 Assessment & Plan Assessment & Plan (1) Diabetes: Code(s): E11.9 - Type 2 diabetes mellitus without complications Category: Medical Plan: Uncontrolled. Change to lantus, continue 50 units nightly. Continue metformin 1000mg BID. Continue with diabetic diet. Continue with annual eye exams and foot exams. (2) Hyperlipidemia: Code(s): E78.5 - Hyperlipidemia, unspecified Category: Medical Plan: Lipid panel ordered. Continue increased dose of pravastatin (3) Class 2 obesity: Code(s): E66.812 - Obesity, class 2 Category: Medical Plan: Weight loss efforts encouraged. Recommend diet lower in saturated fats and highly processed foods. Emphasize protein, fruits, vegetables. Limit refined sugars and simple carbohydrates. Recommend 150 minutes of moderate intensive exercise per week (4) Hypothyroidism: Code(s): E03.9 - Hypothyroidism, unspecified Category: Medical Plan: TSH ordered. Continue levothyroxine as prescribed (5) Hypertension: Code(s): I10 - Essential (primary) hypertension Category: Medical Plan: Controlled on recheck. Continue current therapies Plan Follow-up in the office in 3 months, labs as ordered Orders: Orders Liver Panel 3 Months E03.9 - Hypothyroidism, unspecified, E11.9 - Type 2 diabetes mellitus without complications, E66.812 - Obesity, class 2, E78.5 - Hyperlipidemia, unspecified, I10 - Essential (primary) hypertension Microalbumin, Random (w Creat) 3 Months E03.9 - Hypothyroidism, unspecified, E11.9 - Type 2 diabetes mellitus without complications, E66.812 - Obesity, class 2, E78.5 - Hyperlipidemia, unspecified, I10 - Essential (primary) hypertension Basic Metabolic Panel 3 Months E03.9 - Hypothyroidism, unspecified, E11.9 - Type 2 diabetes mellitus without complications, E66.812 - Obesity, class 2, E78.5 - Hyperlipidemia, unspecified, I10 - Essential (primary) hypertension Hemoglobin A1c 3 Months E03.9 - Hypothyroidism, unspecified, E11.9 - Type 2 diabetes mellitus without complications, E66.812 - Obesity, class 2, E78.5 - Hyperlipidemia, unspecified, I10 - Essential (primary) hypertension Lipid Panel 3 Months E03.9 - Hypothyroidism, unspecified, E11.9 - Type 2 diabetes mellitus without complications, E66.812 - Obesity, class 2, E78.5 - Hyperlipidemia, unspecified, I10 - Essential (primary) hypertension TSH reflex Free T4 3 Months E03.9 - Hypothyroidism, unspecified, E11.9 - Type 2 diabetes mellitus without complications, E66.812 - Obesity, class 2, E78.5 - Hyperlipidemia, unspecified, I10 - Essential (primary) hypertension Medications: New meclizine 25 mg PO TID PRN 90 tabs 0RF dizziness insulin glargine (Lantus Solostar U-100 Insulin) 50 units (0.5 mL) subcut QPM 45 mL 5RF Discontinued insulin degludec (Tresiba U-100 Insulin) Discontinued Reason: Doctor's Order 50 units (0.5 mL) subcut BEDTIME 50 mL 1RF
[2025-06-03 13:23] VITALS: BP 142/80; PULSE 114; TEMP 36.1; O2SAT 94
[2025-06-03 15:43] VITALS: BP 130/84
== END 2025-06-03 14:03 | disposition home or self-care (01) ==
LOC: HO.HMCHD 13:14
PROVIDERS: PCP Physician Assistant; Visit Provider Physician Assistant
DX: E11.9 Type 2 diabetes mellitus without complications (principal); E78.5 Hyperlipidemia, unspecified; E66.812 Obesity, class 2; E03.9 Hypothyroidism, unspecified; I10 Essential (primary) hypertension

== ENCOUNTER → 2025-06-03 13:14 | Outpatient (BNVA) | payer MEDICARE, SELFPAY | PROVIDERS: PCP Physician Assistant; Visit Provider Physician Assistant | DX: E11.42 Type 2 diabetes mellitus with diabetic polyneuropathy (principal); E78.5 Hyperlipidemia, unspecified; E66.812 Obesity, class 2; E03.9 Hypothyroidism, unspecified; I10 Essential (primary) hypertension; N39.3 Stress incontinence (female) (male); M15.9 Polyosteoarthritis, unspecified; Z86.73 Personal history of transient ischemic attack (TIA), and cerebral infarction without residual deficits; Z79.4 Long term (current) use of insulin; Z79.84 Long term (current) use of oral hypoglycemic drugs; Z79.899 Other long term (current) drug therapy | CPT/HCPCS: 99212 ==